=== PATIENT | female | born 1990 ===

== ENCOUNTER 2020-04-01 17:12 | Emergency (ER) | payer OTHER, SELFPAY ==
[2020-04-01 17:15] VITALS: BP 111/68; PULSE 88; RESP 18; TEMP 37.1; O2SAT 96; BMI 21.9
--- NOTE | 2020-04-01 17:42 | ED.URI ---
HPI - URI/Sore Throat General Chief Complaint: Dyspnea Stated Complaint: covid Time Seen by Provider: 04/01/20 18:00 Source: patient Mode of arrival: ambulatory Limitations: no limitations History of Present Illness HPI Narrative: 29-year-old female with no significant past medical history recently COVID-19 positive on 03/14/2020 presents from primary care's office with elevated D-dimer, shortness of breath and chest pain. She does have a family history of blood clots and does take oral contraceptives. MD elicited complaint: fever, cough and nasal congestion Pertinent past history: other (COVID-19 positive) Onset (ago): day(s) Consistency: constant Severity: moderate Pain scale (0-10): 7 Description of mucous: clear and watery Able to tolerate fluids by mouth: Yes Exacerbating factors: exertion and deep breaths Relieving factors: nothing Associated symptoms: fever, chills, cough, chest pain and shortness of breath Related Data Allergies Allergy/AdvReac Type Severity Reaction Status Date / Time latex [LATEX] Allergy Unknown UNKNOWN Unverified 11/22/19 16:06 Penicillins [PENICILLINS] Allergy Unknown UNKNOWN Unverified 11/22/19 16:06 Sulfa (Sulfonamide Allergy Unknown UNKNOWN Unverified 11/22/19 16:06 Antibiotics) [SULFA (SULFONAMIDE ANTIBIOTICS)] Review of Systems Review of Systems: Constitutional: No Fever, no Chills, positive fatigue, positive Malaise ENT/Mouth: No sore throat, positive runny nose Eyes: No Discharge Cardiovascular: Positive Chest Pain, positive SOB Respiratory: Positive Cough, No Sputum, No Wheezing, No Smoke Exposure, No Dyspnea Gastrointestinal: Positive Nausea, No Vomiting, No Diarrhea Genitourinary: no irregular bleeding, No Dysuria, No Urinary Frequency, No Hematuria, No Urinary Incontinence, No Urgency, No Flank Pain, Musculoskeletal: positive Myalgia Skin: No rash Neuro: No Headache Yes all other systems are reviewed and are negative PMFSH Past Medical History Attestation statement: The following information was validated with the patient. Source: old records reviewed Medical History (Updated 04/01/20 @ 20:59 by Raquel Acosta NP) Slipped disc in neck Social History Social History Smoking Status: Former smoker Use of substances other than those prescribed or required for medical reasons: No Advance Directives: No Advance Directives Information Provided: No Physical Exam Vital Signs: Vital Signs: Last Vital Signs Temp 98.9 F 04/01/20 20:00 Pulse 59 04/01/20 20:00 Resp 16 04/01/20 20:00 BP 98/59 L 04/01/20 20:00 Pulse Ox 99 04/01/20 20:00 Body Mass Index 21.9 Appearance: Alert. Oriented X3. No acute distress. Eyes: Pupils equal, round and reactive to light. ENT: Pharynx normal. Neck: Normal inspection. Neck supple. CVS: Normal heart rate and rhythm. Pulses normal. Respiratory: No respiratory distress. Breath sounds normal. Abdomen: Soft and nontender. Skin: Skin warm and dry. Normal skin color. Normal skin turgor. Extremities: No lower extremity edema. Neuro: No motor deficit. No sensory deficit. Course Course Course Narrative: 29-year-old female COVID positive on 03/14/2020 presents with shortness of breath palpitations and positive D-dimer. Plan of care is to rule out PE with CT angio. CT angio negative for PE. Patient does take oral contraceptive is recommended that she stop using that medication as it leads to hypercoagulability. Detailed description of COVID 19 symptoms and sudden symptoms DVT or blood clot, patient verbally understood signs and symptoms, will continue to follow-up with primary care physician as needed and agrees to plan of care discharge home. MDM - URI/Sore Throat MDM Narrative Medical decision making narrative: PE, pneumonia, COVID-19 Differential Diagnosis Differential diagnosis: Likely upper respiratory infection and viral infection Medical Records Attestation: I reviewed the patient's medical records. Lab Data Attestation: I reviewed the patient's lab results. Result diagrams: 04/01/20 18:14 04/01/20 18:14 Labs: Lab Results 04/01/20 04/01/20 04/01/20 Range/Units 18:14 18:14 18:14 WBC 4.9 (4.8-10.8) X10*3/uL RBC 4.38 (4.20-5.50) X10*6/uL Hgb 13.0 (12.0-16.0) g/dl Hct 39.0 (37-47) % MCV 89.0 (80-98) fL MCH 29.7 (27.0-33.0) pg MCHC 33.3 (31.0-35.0) g/dl RDW 12.8 (11.0-16.0) % Plt Count 226 (160-400) X10*3/uL MPV 10.1 (9.4-12.3) fL Immature Gran % (Auto) 0.2 (0.0-0.4) % Neut % (Auto) 39.0 L (45-73) % Lymph % (Auto) 47.7 H (20-40) % [place] % (Auto) 8.4 (2-11) % Eos % (Auto) 4.3 H (0-4) % Baso % (Auto) 0.4 (0-2) % Lymph # (Auto) 2.3 (1.2-4.9) X10*3/uL [place] # (Auto) 0.4 (0.1-1.2) X10*3/uL Eos # (Auto) 0.2 (0.0-0.4) X10*3/uL Baso # (Auto) 0.0 (0.0-0.2) X10*3/uL Abs Immat Gran (auto) 0.01 (0.00-0.03) X10*3/uL Absolute Neuts (auto) 1.9 L (2.0-8.3) X10*3/uL Absolute Nucleated RBC 0.000 (0.0-0.012) X10*3/uL Nucleated RBC % (auto) 0.0 (0.0-0.2) /100WBC Sodium 141 (135-145) mmol/L Potassium 4.2 (3.3-5.1) mmol/l Chloride 107 (96-108) mmol/L Carbon Dioxide 27 (22-29) mmol/L Anion Gap 11 L (12-20) BUN 9 (9-16) mg/dL Creatinine 0.67 (0.5-1.4) mg/dL Estim Creat Clear Calc 97.9 Estimated GFR > 60 Random Glucose 97 (60-115) mg/dL Calcium 8.8 (8.4-10.2) mg/dL Magnesium 2.4 (1.6-2.6) mg/dL Ferritin 17 (10-122) ng/mL Total Bilirubin 0.9 (0.0-1.0) mg/dL Direct Bilirubin 0.2 (0.0-0.5) mg/dL AST 20 (5-31) U/L ALT 24 (0-31) U/L Alkaline Phosphatase 44 (39-117) U/L Lactate Dehydrogenase 112 L (122-220) U/L C-Reactive Protein 0.14 (< or = 0.50) mg/dL Total Protein 7.4 (6.5-8.0) g/dL Albumin 4.2 (3.5-5.0) g/dL Lipase 38 (8-78) U/L Procalcitonin ng/mL Urine Color Urine Appearance Urine pH (5.0-8.0) Ur Specific [place] (1.005-1.025) Urine Protein (NEG-TRACE) MG/DL Urine Glucose (UA) (NEG) MG/DL Urine Ketones (NEG) MG/DL Urine Blood (NEG) Urine Nitrite (NEG) Ur Leukocyte Esterase (NEG) Urine Test (NEGATIVE) 04/01/20 04/01/20 04/01/20 Range/Units 18:14 18:34 18:34 WBC (4.8-10.8) X10*3/uL RBC (4.20-5.50) X10*6/uL Hgb (12.0-16.0) g/dl Hct (37-47) % MCV (80-98) fL MCH (27.0-33.0) pg MCHC (31.0-35.0) g/dl RDW (11.0-16.0) % Plt Count (160-400) X10*3/uL MPV (9.4-12.3) fL Immature Gran % (Auto) (0.0-0.4) % Neut % (Auto) (45-73) % Lymph % (Auto) (20-40) % [place] % (Auto) (2-11) % Eos % (Auto) (0-4) % Baso % (Auto) (0-2) % Lymph # (Auto) (1.2-4.9) X10*3/uL [place] # (Auto) (0.1-1.2) X10*3/uL Eos # (Auto) (0.0-0.4) X10*3/uL Baso # (Auto) (0.0-0.2) X10*3/uL Abs Immat Gran (auto) (0.00-0.03) X10*3/uL Absolute Neuts (auto) (2.0-8.3) X10*3/uL Absolute Nucleated RBC (0.0-0.012) X10*3/uL Nucleated RBC % (auto) (0.0-0.2) /100WBC Sodium (135-145) mmol/L Potassium (3.3-5.1) mmol/l Chloride (96-108) mmol/L Carbon Dioxide (22-29) mmol/L Anion Gap (12-20) BUN (9-16) mg/dL Creatinine (0.5-1.4) mg/dL Estim Creat Clear Calc Estimated GFR Random Glucose (60-115) mg/dL Calcium (8.4-10.2) mg/dL Magnesium (1.6-2.6) mg/dL Ferritin (10-122) ng/mL Total Bilirubin (0.0-1.0) mg/dL Direct Bilirubin (0.0-0.5) mg/dL AST (5-31) U/L ALT (0-31) U/L Alkaline Phosphatase (39-117) U/L Lactate Dehydrogenase (122-220) U/L C-Reactive Protein (< or = 0.50) mg/dL Total Protein (6.5-8.0) g/dL Albumin (3.5-5.0) g/dL Lipase (8-78) U/L Procalcitonin < 0.02 ng/mL Urine Color YELLOW Urine Appearance CLEAR Urine pH 6.5 (5.0-8.0) Ur Specific [place] 1.015 (1.005-1.025) Urine Protein NEG (NEG-TRACE) MG/DL Urine Glucose (UA) NEG (NEG) MG/DL Urine Ketones NEG (NEG) MG/DL Urine Blood NEG (NEG) Urine Nitrite NEG (NEG) Ur Leukocyte Esterase NEG (NEG) Urine Test NEGATIVE (NEGATIVE) Imaging Data CT PE protocol: Attestation: I personally reviewed and interpreted this imaging study as follows: Radiologist's impression: EXAMINATION: CT PULMONARY EMBOLISM STUDY CLINICAL INFORMATION: Elevated d-dimer. COMPARISON: Abdominal and pelvic CT from November 18, 2018. TECHNIQUE: Contiguous helical images of the chest were obtained following the administration of IV contrast. Multiplanar reconstructions were performed. MIPS were obtained and reviewed. DLP: 207 mGy-cm. CONTRAST: 54 cc of Omnipaque 350 were administered without incident. FINDINGS: The heart is of normal size. There is no pericardial effusion. The great vessels are unremarkable. Specifically, there is no pulmonary arterial filling defect. There is no CT evidence for pulmonary embolism. There are no chest wall masses. Review of lung windows demonstrates that there are neither pleural effusions nor pneumothoraces. There are no consolidations. There are no pulmonary parenchymal nodules. Limited evaluation of the upper abdomen demonstrates that the liver is of normal size and attenuation. There is a stable low-attenuation lesion within the periphery of the right lobe of the liver. Normal adrenal glands are identified. CT/CT angio chest PE protocol IMPRESSION: No CT evidence for pulmonary embolism. Automated exposure control (Care Dose) Adjustment of the mA and/or kv according to patient size (this includes techniques or standardized protocols for targeted exams where dose is matched to indication / reason for exam; i.e. extremities or head). Discharge Plan Discharge Clinical Impression: COVID-19 Patient Disposition: Home, Self-Care Instructions: COVID-19 (Coronavirus Disease 2019) (ED) Additional Instructions: You were referred to the emergency department for evaluation for an elevated D-dimer and shortness of breath. CT angiogram for pulmonary embolism scan is negative for blood clots in the lungs or any other acute findings. You may consider taking an aspirin 81 mg p.o. daily and considering other methods of control use. Use of control pills can increase risk for blood clots. Please follow-up with primary care physician in the next week. If you have any other symptoms that are concerning such as but not limited to chest pain, palpitations, increased shortness of breath please return to the emergency department immediately. Thank you for choosing this emergency department for evaluation. Please follow-up with primary care physician as needed. Return to the emergency department for any new, concerning, or worsening symptoms. Stand Alone Forms: Work/School Release Interventions: ED Discharge Assessment Last Done: 04/01/20 21:33 Discharge Date/Time: 04/01/20 21:34
--- NOTE | 2020-04-01 17:50 | ECG_ITS ---
Test Reason : DYSPENA Blood Pressure : / mmHG Vent. Rate : 075 BPM Atrial Rate : 075 BPM P-R Int : 116 ms QRS Dur : 096 ms QT Int : 412 ms P-R-T Axes : 034 086 050 degrees QTc Int : 460 ms Normal sinus rhythm Low voltage QRS Cannot rule out Anterior infarct , age undetermined Abnormal ECG When compared with ECG of 27-DEC-2005 18:57, Poor R wave progression compared to previous ECG Referred By: Raquel Acosta Electronically Signed By:Naveed Gandhi
[2020-04-01 18:00] VITALS: BP 104/57; RESP 17; TEMP 37.3; O2SAT 99
--- NOTE | 2020-04-01 18:02 | CT_ITS ---
EXAMINATION: CT PULMONARY EMBOLISM STUDY CLINICAL INFORMATION: Elevated d-dimer. COMPARISON: Abdominal and pelvic CT from November 18, 2018. TECHNIQUE: Contiguous helical images of the chest were obtained following the administration of IV contrast. Multiplanar reconstructions were performed. MIPS were obtained and reviewed. DLP: 207 mGy-cm. CONTRAST: 54 cc of Omnipaque 350 were administered without incident. FINDINGS: The heart is of normal size. There is no pericardial effusion. The great vessels are unremarkable. Specifically, there is no pulmonary arterial filling defect. There is no CT evidence for pulmonary embolism. There are no chest wall masses. Review of lung windows demonstrates that there are neither pleural effusions nor pneumothoraces. There are no consolidations. There are no pulmonary parenchymal nodules. Limited evaluation of the upper abdomen demonstrates that the liver is of normal size and attenuation. There is a stable low-attenuation lesion within the periphery of the right lobe of the liver. Normal adrenal glands are identified. CT/CT angio chest PE protocol IMPRESSION: No CT evidence for pulmonary embolism. Automated exposure control (Care Dose) Adjustment of the mA and/or kv according to patient size (this includes techniques or standardized protocols for targeted exams where dose is matched to indication / reason for exam; i.e. extremities or head).
[2020-04-01 18:24] LABS: MANUAL DIFF FLAG NO
[2020-04-01 18:25] LABS: Basophils Percent Auto 0.4 % (0-2); Eosinophils Absolute Auto 0.2 X10*3/uL (0.0-0.4); Eosinophils Percent Auto 4.3 % (0-4); Imm Gran Abs Auto 0.01 X10*3/uL (0.00-0.03); Imm Gran Pct Auto 0.2 % (0.0-0.4); Lymphocytes Absolute Auto 2.3 X10*3/uL (1.2-4.9); Lymphocytes Percent Auto 47.7 % (20-40); Mean Corpuscular HGB Conc 33.3 g/dl (31.0-35.0); Mean Corpuscular Hemoglobin 29.7 pg (27.0-33.0); Mean Platelet Volume 10.1 fL (9.4-12.3); Monocytes Absolute Auto 0.4 X10*3/uL (0.1-1.2); Monocytes Percent Auto 8.4 % (2-11); Neutrophils Absolute Auto 1.9 X10*3/uL (2.0-8.3); Platelet Count 226 X10*3/uL (160-400); Red Blood Count 4.38 X10*6/uL (4.20-5.50); Red Cell Distribution Width 12.8 % (11.0-16.0); White Blood Count 4.9 X10*3/uL (4.8-10.8)
[2020-04-01 18:50] LABS: Lactate Dehydrogenase 112 U/L (122-220)
[2020-04-01 18:54] LABS: Glucose Urine UA NEG (NEG); Leukocyte Esterase Urine NEG (NEG); Nitrite Urine NEG (NEG); PH 6.5 (5.0-8.0); Specific Gravity - Urine 1.015 (1.005-1.025); Urine Blood NEG (NEG); Urine Ketones NEG (NEG); Urine Protein NEG (NEG-TRACE)
[2020-04-01 18:55] LABS: Appearance Urine CLEAR; Color Urine YELLOW
[2020-04-01 18:57] LABS: Alanine Aminotransferase 24 U/L (0-31); Albumin Level 4.2 g/dL (3.5-5.0); Alkaline Phosphatase 44 U/L (39-117); Anion Gap 11 (12-20); Aspartate Amino Transferase 20 U/L (5-31); Bilirubin Direct 0.2 mg/dL (0.0-0.5); Bilirubin Total 0.9 mg/dL (0.0-1.0); Blood Urea Nitrogen 9 mg/dL (9-16); C Reactive Protein 0.14 mg/dL (< or = 0.50); Calcium 8.8 mg/dL (8.4-10.2); Carbon Dioxide 27 mmol/L (22-29); Chloride 107 mmol/L (96-108); Creatinine Clr Calc Pharmacy 97.9; Estimated Glomerular Filt Rate > 60; Glucose Random 97 mg/dL (60-115); Lipase 38 U/L (8-78); Magnesium 2.4 mg/dL (1.6-2.6); Potassium 4.2 mmol/l (3.3-5.1); Sodium 141 mmol/L (135-145); Total Protein 7.4 g/dL (6.5-8.0)
[2020-04-01 19:05] LABS: UPreg QC Valid YES; Urine Pregnancy NEGATIVE (NEGATIVE)
[2020-04-01 19:12] LABS: Ferritin 17 ng/mL (10-122); Procalcitonin < 0.02 ng/mL
[2020-04-01] MEDS: iohexoL 350 MG/ML 100 ML INFUS..BTL IV (19:35)
--- NOTE | 2020-04-01 19:42 | PC.NURSE ---
pt to cat scan via stretcher, placed back on zoll, pt offering no new complaints at thsi time
[2020-04-01 20:00] VITALS: BP 98/59; PULSE 59; RESP 16; TEMP 37.2; O2SAT 99
== END 2020-04-01 21:34 | disposition home or self-care (01) ==
PROVIDERS: Nurse Practitioner Family; Emergency Provider Emergency Medicine Emergency Medical Services; PCP Internal Medicine
DX: U07.1 COVID-19 (principal); R07.9 Chest pain, unspecified; Z83.2 Family history of diseases of the blood and blood-forming organs and certain disorders involving the immune mechanism
CPT/HCPCS: 36415; 71275; 80048; 80076; 81003; 81025; 82728; 83615; 83690; 83735; 84145; 85025; 86140; 93005; 96361; 96374; 99284; Q9967

== ENCOUNTER 2020-11-05 16:05 | Outpatient (REF) | payer OTHER, SELFPAY ==
[2020-11-07 14:25] LABS: Prolactin 8.7 ng/mL
== END 2020-11-05 16:06 | disposition home or self-care (01) ==
LOC: HO.LAB 16:05
PROVIDERS: Visit Provider Psychiatry & Neurology Neurology
DX: G43.109 Migraine with aura, not intractable, without status migrainosus (principal)
CPT/HCPCS: 36415; 84146

== ENCOUNTER 2020-11-13 16:42 | Outpatient (REF) | payer OTHER, SELFPAY ==
--- NOTE | ~2020-11-13 | MR_ITS ---
MR BRAIN WITHOUT AND WITH CONTRAST CLINICAL INFORMATION: Migraine with aura. COMPARISON: None available. TECHNIQUE: Multiplanar, multisequence MRI of the brain was obtained before and after the intravenous administration of 5 mL Gadavist FINDINGS: There is no pathologic intracranial enhancement. No parenchymal signal abnormality. There is no hydrocephalus, extra-axial surface collection, or herniation. The major flow voids at the skull base are preserved. There is no acute infarct on diffusion-weighted imaging. There is no intracranial hemorrhage on the gradient recalled echo acquisition. The midline structures are normal. The cerebellar tonsils are normally positioned. The cerebellum and brainstem are normal. The craniocervical junction is normal. Osseous marrow signal intensity is homogenous. The visualized soft tissues are unremarkable. MR/MR head/brain wo/w con IMPRESSION: Unremarkable MRI of the brain.
== END 2020-11-13 16:43 | disposition home or self-care (01) ==
LOC: HO.MRI 16:42
PROVIDERS: PCP Internal Medicine; Visit Provider Psychiatry & Neurology Neurology
DX: G43.109 Migraine with aura, not intractable, without status migrainosus (principal)
CPT/HCPCS: 70553; A9585

== ENCOUNTER → 2021-06-03 13:32 | Outpatient (BNVA) | payer OTHER, SELFPAY | PROVIDERS: PCP Internal Medicine; Visit Provider Nurse Practitioner Family | DX: G43.109 Migraine with aura, not intractable, without status migrainosus (principal); G47.9 Sleep disorder, unspecified; F32.A Depression, unspecified | CPT/HCPCS: 99202 ==

== ENCOUNTER 2021-12-22 23:13 | Emergency (ER) | payer OTHER, SELFPAY ==
--- NOTE | ~2021-12-22 | XR_ITS ---
EXAMINATION: XR KNEE, RIGHT CLINICAL INFORMATION: Right knee pain COMPARISON: Right knee radiographs 09/27/2016 TECHNIQUE: Four views of the right knee. FINDINGS: Bones and soft tissues are unremarkable. A barely perceptible joint effusion is present. No fracture. Alignment is anatomic. Joint spaces are well maintained. No abnormal soft tissue calcification. XR/XR knee RT 2V IMPRESSION: A barely perceptible joint effusion is present. No other abnormality is seen. Similar findings were present in 2017.
[2021-12-22 23:47] VITALS: BP 100/50; PULSE 80; RESP 18; TEMP 36.4; O2SAT 97; BMI 22.1
--- NOTE | 2021-12-23 00:46 | ED.LOWEXIN ---
HPI - Extremity Injury (Lower) General Chief Complaint: Extremity Injury, Lower Stated Complaint: R Knee pain Time Seen by Provider: 12/23/21 00:46 Source: patient Mode of arrival: ambulatory Limitations: no limitations History of Present Illness HPI Narrative: 31-year-old female who presents with right knee pain since yesterday. Patient tells me she was walking yesterday when she felt the knee locked up and then fell popping sensation in the knee. Since then continued pain. Patient is icing and taking naproxen at home with continued pain. She reports history of subluxation of same knee in the past seen by Orthopedics Related Data Home Medications Medication Instructions Recorded Confirmed aspirin 81 mg tablet,delayed 81 mg PO DAILY 06/03/21 06/03/21 release (Adult Aspirin Regimen) atorvastatin 20 mg tablet 20 mg PO DAILY 06/03/21 06/03/21 azelastine 137 mcg (0.1 %) nasal 2 spray intranasal BID 06/03/21 06/03/21 spray aerosol clonazepam 0.5 mg tablet 0.5 mg PO DAILY PRN 06/03/21 06/03/21 loratadine 10 mg tablet (Claritin) 10 mg PO DAILY 06/03/21 06/03/21 naproxen 500 mg tablet 500 mg PO Q12H PRN 06/03/21 06/03/21 sumatriptan succinate 50 mg tablet 50 mg PO 06/03/21 06/03/21 Previous Rx's Medication Instructions Recorded magnesium oxide 400 mg (241.3 mg 400 mg PO DAILY 30 days #30 tabs 06/03/21 magnesium) tablet riboflavin (vitamin B2) 400 mg 400 mg PO DAILY 30 days #30 tabs 06/03/21 tablet sumatriptan succinate 100 mg tablet 100 mg PO Q2H PRN migraine 06/03/21 headache 30 days #12 tabs Allergies Allergy/AdvReac Type Severity Reaction Status Date / Time latex [LATEX] Allergy Unknown UNKNOWN Unverified 06/03/21 13:38 Penicillins [PENICILLINS] Allergy Unknown UNKNOWN Unverified 06/03/21 13:38 Sulfa (Sulfonamide Allergy Unknown UNKNOWN Unverified 06/03/21 13:38 Antibiotics) [SULFA (SULFONAMIDE ANTIBIOTICS)] mushroom Allergy Anaphylaxis Verified 12/22/21 23:46 Review of Systems Review of Systems: Yes all other systems are reviewed and are negative Constitutional: Constitutional: Reports no additional constitutional complaints, Denies fever(s) and Denies weakness Eyes: Eyes: Reports no additional eye complaints ENT: Reports system reviewed and no additional complaints, except as documented Cardiovascular: Cardiovascular: Reports no additional cardiovascular complaints, Denies acrocyanosis and Denies leg edema Respiratory: Respiratory: Reports no additional respiratory complaints Gastrointestinal: Gastrointestinal: Reports no additional gastrointestinal complaints, Denies nausea and Denies vomiting Genitourinary: Genitourinary: Reports no additional female genitourinary complaints Musculoskeletal: Musculoskeletal: Reports no additional musculoskeletal complaints, Reports arthralgias, Denies joint swelling, Denies numbness and Denies tingling Integumentary/Breasts: Skin/Breast: Reports system reviewed and no additional complaints, except as docu and Denies rash Neurologic: Denies numbness, Denies tingling and Denies weakness PMFSH Past Medical History Attestation statement: The following information was validated with the patient. Source: old records reviewed and nursing notes reviewed Medical History Anemia Slipped disc in neck Surgical History History of colonoscopy History of LEEP (loop electrosurgical excision procedure) of cervix complicating History of wisdom tooth extraction Social History Social History Alcohol intake: never Patient Tobacco Use Status: Former Tobacco user Advance Directives: No Advance Directives Information Provided: Yes Physical Exam Vital Signs: Vital Signs: Last Vital Signs Temp 97.6 F 12/22/21 23:47 Pulse 80 12/22/21 23:47 Resp 18 12/22/21 23:47 BP 100/50 L 12/22/21 23:47 Pulse Ox 97 12/22/21 23:47 O2 Del Method 12/22/21 23:47 BMI result Body Mass Index 22.1 Const: General: cooperative, healthy appearing, comfortable and no acute distress Orientation/consciousness: patient oriented x3 Limitations: no limitations HEENT: Head: Yes normal to inspection Ears: hearing grossly normal bilaterally General nose exam: Normal external nose present Face and sinus: Yes normal facial exam Mouth: Normal oral and palatal mucosa present Throat: Yes posterior oropharynx normal Eyes: General: appearance normal, both eyes and all related structures Pupils: Equal, round and reactive pupils present Neck: Neck: Yes normal visual inspection Chest: Chest palpation & inspection: normal inspection of the chest Resp: Effort & Inspection: normal respiratory effort Cardio: Peripheral pulses: Peripheral pulses 2+ throughout Back/Spine/Pelvis: Thoracic/Lumbar Spine: thoracic and lumbar spine normal to inspection Skin: General skin exam: no rashes or lesions noted Neuro: General: patient oriented x3 and moves all extremities Cranial nerves: Yes Equal, round and reactive pupils present Cognition (Neuro): normal cognition Extrem: Other: There is tenderness to the medial joint line the medial ligament of the right knee. Unable to assess any ligamental laxity. Patient is able to flex and extend the knee with no difficulty. No posterior knee pain. No calf pain. Neurovascular intact distally General: Yes normal to inspection Course Course Course Narrative: X-rays show small joint effusion but no other bony abnormality. Likely sprain. Patient has a brace from home. Recommend crutches, rice. She can follow-up with her primary care doctor or Orthopedics for any persistent symptoms. Reviewed worrisome signs and symptoms of when to return to the emergency room. Comfortable plan for discharge home. MDM - Extremity Injury (Lower) MDM Narrative Medical decision making narrative: 31-year-old female here with right knee pain after walking and feeling a popping sensation yesterday. Will obtain x-rays Medical Records Attestation: I reviewed the patient's medical records. Lab Data Attestation: I reviewed the patient's lab results. Imaging Data knee x-ray: Attestation: I personally reviewed and interpreted this imaging study as follows: Radiologist's impression: [address] [address] XRay Report Signed Patient: Sophy Ash MR#: [id number] : 1990 Acct:[id number] Age/Sex: 31 / F ADM Date: 12/22/21 Loc: .ED Attending Dr: Ordering Physician: Generic ED Physician Date of Service: 12/22/21 Procedure(s): XR knee RT 2V Accession Number(s): [id number] cc: Generic ED Physician~ EXAMINATION: XR KNEE, RIGHT? CLINICAL INFORMATION: Right knee pain? COMPARISON: Right knee radiographs 09/27/2016? TECHNIQUE: Four views of the right knee. FINDINGS: Bones and soft tissues are unremarkable. A barely perceptible joint effusion is present. No fracture. Alignment is anatomic. Joint spaces are well maintained. No abnormal soft tissue calcification.? XR/XR knee RT 2V IMPRESSION: A barely perceptible joint effusion is present. No other abnormality is seen. Similar findings were present in 2017. ? Discharge Plan Discharge Clinical Impression: Right knee sprain Patient Disposition: Home, Self-Care Instructions: Knee Sprain (ED) Additional Instructions: X-ray show no fracture Apply ice, elevate the leg Take Motrin or Tylenol for pain as needed Follow-up with your primary care doctor and/or orthopedics for any persistent symptoms Prescriptions: No Action azelastine 137 mcg (0.1 %) aerosol,spray 2 spray intranasal BID atorvastatin 20 mg tablet 20 mg PO DAILY clonazepam 0.5 mg tablet 0.5 mg PO DAILY PRN sumatriptan succinate 50 mg tablet 50 mg PO naproxen 500 mg tablet 500 mg PO Q12H PRN loratadine [Claritin] 10 mg tablet 10 mg PO DAILY aspirin [Adult Aspirin Regimen] 81 mg tablet,delayed release (DR/EC) 81 mg PO DAILY magnesium oxide 400 mg (241.3 mg magnesium) tablet 400 mg PO DAILY 30 Days Qty: 30 6RF riboflavin (vitamin B2) 400 mg tablet 400 mg PO DAILY 30 Days Qty: 30 6RF sumatriptan succinate 100 mg tablet 100 mg PO Q2H PRN (Reason: migraine headache) 30 Days Qty: 12 6RF Rx Instructions: 1/2-1 tab at onset of migraine, may repeat in 2 hours (may take with naproxen), max of 2 tabs per day or 4 times per week. [place]: [facility] [place] [facility] [Provider Group] - 2 weeks Physician,None [Primary Care Provider] -
== END 2021-12-23 01:54 | disposition home or self-care (01) ==
PROVIDERS: Emergency Provider Internal Medicine
DX: S83.91XA Sprain of unspecified site of right knee, initial encounter (principal); X50.9XXA Other and unspecified overexertion or strenuous movements or postures, initial encounter; Z79.899 Other long term (current) drug therapy; Y93.01 Activity, walking, marching and hiking; Y92.480 Sidewalk as the place of occurrence of the external cause; Y99.9 Unspecified external cause status
CPT/HCPCS: 73560; 99282; 99283

== ENCOUNTER 2022-01-18 08:21 | Outpatient (REF) | payer OTHER, SELFPAY ==
--- NOTE | ~2022-01-18 | XR_ITS ---
EXAMINATION: XR KNEE, RIGHT CLINICAL INFORMATION: Right knee pain. COMPARISON: 12/23/2021 TECHNIQUE: Single sunrise view. FINDINGS: No abnormality is detected. XR/XR knee RT 1V IMPRESSION: No abnormality seen on this sunrise view.
== END 2022-01-18 08:22 | disposition home or self-care (01) ==
LOC: HO.HOSX 08:21
PROVIDERS: Visit Provider Physician Assistant
DX: M25.561 Pain in right knee (principal); M25.562 Pain in left knee; S83.011A Lateral subluxation of right patella, initial encounter; X58.XXXA Exposure to other specified factors, initial encounter; Y93.9 Activity, unspecified; Y92.9 Unspecified place or not applicable; Y99.9 Unspecified external cause status
CPT/HCPCS: 73560; 99202; 99212

== ENCOUNTER → 2022-01-26 13:56 | Outpatient (BNVA) | payer OTHER, SELFPAY | PROVIDERS: PCP Internal Medicine; Visit Provider Nurse Practitioner Family | DX: G43.109 Migraine with aura, not intractable, without status migrainosus (principal); M24.80 Other specific joint derangements of unspecified joint, not elsewhere classified | CPT/HCPCS: 99212 ==

== ENCOUNTER → 2022-03-10 14:26 | Outpatient (BNVA) | payer OTHER, SELFPAY | PROVIDERS: PCP Internal Medicine; Visit Provider Physician Assistant | DX: S83.011A Lateral subluxation of right patella, initial encounter (principal); M24.80 Other specific joint derangements of unspecified joint, not elsewhere classified | CPT/HCPCS: 99212 ==

== ENCOUNTER 2022-03-19 13:00 | Outpatient (RCR) | payer OTHER, SELFPAY ==
--- NOTE | 2022-02-12 16:11 | MHC.PT.EP ---
[facility] [place] Office [place] Office [place] Office [address] Marita Loo [address] [phone] F: [phone] F: [phone] F: [phone] F: [phone] Physical Therapy Plan of Care Date of Evaluation: Date of Surgery: NA Diagnosis: Assessment: Pt IS 31 YO F REFERRED TO PT FROM ORTHO ([facility]) WITH LATERAL SUBLUXATION OF R PATELLA. Pt REPORTS SHE WAS JUST WALKING IN KITCHEN Dec AND FELT R KNEE GOT PULLED OUTWARD AND SNAPPED BACK (TOO MUCH). 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 WAS SEEN IN ER, FU WITH ORTHO. XRAY NEG, REPORTS MRI (THAT SHE HAD AT [facility] WAS NEG). PRESENTS WITH ANTALGIC GT WITH I CRUTCH ON R SIDE, LIMITED R KNEE ROM, LIMITED R LE STRENGTH WITH PAIN. SHOULD BENEFIT FROM PT TO ADDRESS THESE ISSUES Frequency and Duration: The patient will be seen 2X/WK X 6 WKS Short Term Goals: 1. INCREASED AWARENESS KNEE CARE 2. GT WITHOUT AD 3. R KNEE EXT TO 0 Intermediate Goals: 1. I HEP WITH DC EX PLAN 2. R KNEE FLEX =120 3. I TAPING 4. DECREASED R KNEE PAIN AT LEAST 50% WITH ADLS Treatment Plan: Modalities to reduce pain, spasms and effusion. Manual therapy to restore motion and function. Therapeutic exercise to improve strength and flexibility. Neuromuscular re-education for posture and balance. Therapeutic activities to return to functional activities of daily living. Electronically signed by: ELIZABETH PATRICIA PT Please sign and return to therapist. Thank you for your referral.
--- NOTE | 2022-05-04 16:06 | MHC.PT.DC ---
[facility] [place] [facility] [place] [facility] [place] [facility] [address] Marita Loo [address] [phone] F: [phone] F: [phone] F: [phone] F: [phone] Physical Therapy Discharge Report Diagnosis: Date of Surgery: NA Date of Evaluation: 02/12/22 Date of Discharge: 05/04/22 Treatments to Date: 7 Cancellations to Date: 2 No Shows to Date: Discharge Status: Improved Function Independent with HEP Patient Elected to Stop Discharge Summary: R KNEE AROM 0-120 (12-85 AT SOC). HAS MET MOST PT GOALS. AGREES WITH DC (WILL DO 2 WK FU AND CX IF NOT NEEDED) Electronically signed by: ELIZABETH PATRICIA PT Please sign and return to therapist. Thank you for your referral.
== END 2022-05-04 16:08 | disposition home or self-care (01) ==
LOC: HO.PT 13:00
PROVIDERS: PCP Internal Medicine; Visit Provider Physician Assistant
DX: S83.011D Lateral subluxation of right patella, subsequent encounter (principal)
CPT/HCPCS: 97110; 97116; 97140; 97162; 97535

== ENCOUNTER → 2022-05-25 11:35 | Outpatient (BNVA) | payer OTHER, SELFPAY | PROVIDERS: PCP Internal Medicine; Visit Provider Nurse Practitioner Family | DX: G43.109 Migraine with aura, not intractable, without status migrainosus (principal); M24.80 Other specific joint derangements of unspecified joint, not elsewhere classified | CPT/HCPCS: 99212 ==

== ENCOUNTER → 2022-08-05 13:54 | Outpatient (BNVA) | payer OTHER, SELFPAY | PROVIDERS: PCP Internal Medicine; Visit Provider Student in an Organized Health Care Education/Training Program | DX: S83.011A Lateral subluxation of right patella, initial encounter (principal); M24.80 Other specific joint derangements of unspecified joint, not elsewhere classified | CPT/HCPCS: 99202 ==

== ENCOUNTER 2022-09-27 12:56 | Outpatient (AMB) | payer OTHER, SELFPAY ==
[2022-09-27 12:57] VITALS: BP 104/78; PULSE 82; O2SAT 98; BMI 21.1
--- NOTE | 2022-09-27 12:57 | A.OFFVIS_ITS ---
Intake Vital Signs 09/27/22 12:57 Height 5 ft 2 in Weight 115 lb 2 oz BMI 21.1 BP 104/78 Blood Pressure Location Rt brachial Position Sitting Pulse 82 Pulse Source Pulse Oximeter Pulse Oximetry (%) 98 Oxygen Delivery Method Room Air Intake Visit Reasons: 4m follow up Intake Note: Pt presents as a 4 month f/u for headaches. Pt states she had a couple headaches but took the Rizatriptan and it took the edge off where should could lay down for a nap. Equipment Maintenance Supervisor Required: No Allergies latex [LATEX] Allergy (Unknown, Verified 09/27/22 13:05) UNKNOWN Penicillins [PENICILLINS] Allergy (Unknown, Verified 09/27/22 13:05) UNKNOWN Sulfa (Sulfonamide Antibiotics) [SULFA (SULFONAMIDE ANTIBIOTICS)] Allergy (Unknown, Verified 09/27/22 13:05) UNKNOWN mushroom Allergy (Verified 09/27/22 13:05) Anaphylaxis Medication List - Last Reconciled 09/27/22 by JODIE Heath aspirin (Adult Aspirin Regimen) 81 mg PO DAILY atorvastatin 20 mg PO DAILY clonazepam 0.5 mg PO DAILY PRN loratadine (Claritin) 10 mg PO DAILY magnesium oxide 400 mg PO DAILY naproxen 500 mg PO Q12H PRN riboflavin (vitamin B2) 400 mg PO DAILY 30 days rizatriptan 5 - 10 mg (0.5 - 1 x 10 mg) PO Q2H PRN 21 days HPI HPI Comments History of Present Illness Details 32-yr-old female presents for f/u visit. Pt denies any significant interval medical changes. Pt reports she has been wondering if she has undiagnosed ADD versus under treated mood disorder. Her PCP referred her to collaborative care, however review of pt's note shows that that service could not help her with this question. Pt reports her brother was diagnosed with ADHD as a young child. Her mother has recently has been diagnosed with depression and anxiety. She describes that she can be focused or even hyperfocused if she is very interested. She has been prone to procrastinating say doing a paper, and then hyperfocusing to finish the paper- typically did well on her papers. In highschool, if she was not interested in a topic, she would do the work in a classroom but not the homework. She is prone to forgetting to respond to emails/texts. She is prone to multi-tasking- tends to doodle. When she is driving, she always has the GPS and music running. She has had 2 migraines since the last visit, her triptan was helpful. Her genetic testing appt is still pending- Nov and next June. [facility] Medical History Anemia High cholesterol Slipped disc in neck Surgical History History of colonoscopy History of LEEP (loop electrosurgical excision procedure) of cervix complicating History of wisdom tooth extraction Family History Mother Migraines Maternal Grandmother Migraines Brother Migraines Family/Other Rheumatoid arthritis Social History (Updated 09/27/22 @ 13:09 by Tri Levy CMA) Alcohol intake: current Alcohol intake frequency: holidays/special occasions only Patient Tobacco Use Status: Former Tobacco user Substance Use Type: Marijuana Current occupational status: unemployed Review of Systems Const All systems reviewed & are unremarkable except as noted in HPI and below Physical Exam Vital Signs: Last Vital Signs Pulse 82 09/27/22 12:57 BP 104/78 09/27/22 12:57 Pulse Ox 98 09/27/22 12:57 Oxygen Delivery Method Room Air 09/27/22 12:57 BMI result Body Mass Index 21.1 Const General: cooperative and no acute distress Orientation/consciousness: patient oriented x3 HEENT Head: Yes normocephalic Resp Effort & Inspection: normal respiratory effort and able to speak in complete sentences Neuro General: patient oriented x3 and CN's II-XI intact bilaterally Cognition (Neuro): normal cognition Gait exam (Neuro): Assistive device used (cane) Motor exam (neuro): 5/5 motor strength present throughout Psych Appearance: grossly normal Mental Status: mental status grossly normal Speech and movement: Normal speech and movement present Affect: normal affect Attitude: cooperative Thought process: Normal thought process present Thought content: Normal thought content present Insight: Good insight present (Psych) Judgement: Good judgement present (Psych) Assessment & Plan Assessment & Plan (1) Migraine with aura: Code(s): G43.109 - Migraine with aura, not intractable, without status migrainosus (2) ADD (attention deficit disorder): Code(s): F98.8 - Other specified behavioral and emotional disorders with onset usually occurring in childhood and adolescence Plan For pt's ? on ADD dx: Based on pt's reported s/s, which developed during her early life and persist through today, I immanuel pt does have a degree of ADD. I have advised pt to try psychotherapy, if ineffective, we can consider psychostimulant. Info given on [facility], if pt unable toe stablish care we can assist. Pt previously tried Buproprion for mood which did not seem to help focus etc. For joint hypermobility: Concur w/ referral to genetics. For migraine prevention: Again trial Amitriptyline 10mg qhs- may help body pains as well. Continue riboflavin for migraine prevention.? Pt may trial Mag citrate, co-q 10, feverfew. For acute migraine tx: Continuel Rizatripatn 5-10mg prn, may repeat in 2 hours if migraine not fully aborted.? May augment with an NSAID such as naproxen.? Medications: New magnesium oxide 400 mg PO DAILY 30 tabs 6RF 30 days Refilled riboflavin (vitamin B2) 400 mg PO DAILY 30 tabs 6RF 30 days Coding Level of Care Code Est Pt Level 4 (33785) Diagnoses Migraine with aura G43.109 ADD (attention deficit disorder) F98.8
== END 2022-09-27 14:12 | disposition home or self-care (01) ==
PROVIDERS: Visit Provider Nurse Practitioner Family
DX: G43.109 Migraine with aura, not intractable, without status migrainosus (principal); F98.8 Other specified behavioral and emotional disorders with onset usually occurring in childhood and adolescence
CPT/HCPCS: 99214

== ENCOUNTER → 2022-09-27 12:56 | Outpatient (BNVA) | payer OTHER, SELFPAY | PROVIDERS: Visit Provider Nurse Practitioner Family | DX: G43.109 Migraine with aura, not intractable, without status migrainosus (principal); F98.8 Other specified behavioral and emotional disorders with onset usually occurring in childhood and adolescence | CPT/HCPCS: 99212 ==

== ENCOUNTER 2023-03-30 12:56 | Outpatient (AMB) | payer BC, SELFPAY ==
--- NOTE | 2023-03-30 13:01 | A.OFFVIS_ITS ---
Intake Vital Signs 03/30/23 13:03 Height 5 ft 2 in Weight 118 lb 6 oz BMI 21.6 BP 98/58 L Blood Pressure Location Rt brachial Position Sitting Respiration 17 Pulse 85 Pulse Source Pulse Oximeter Pulse Oximetry (%) 97 Oxygen Delivery Method Room Air Intake Visit Reasons: 6m follow up - LVM Intake Note: Pt presents to the office for a 6 month follow up for migraine with aura. Senior Sales Director Required: No Allergies latex [LATEX] Allergy (Unknown, Verified 03/30/23 13:02) UNKNOWN Penicillins [PENICILLINS] Allergy (Unknown, Verified 03/30/23 13:02) UNKNOWN Sulfa (Sulfonamide Antibiotics) [SULFA (SULFONAMIDE ANTIBIOTICS)] Allergy (Unknown, Verified 03/30/23 13:02) UNKNOWN mushroom Allergy (Verified 03/30/23 13:02) Anaphylaxis HPI HPI Comments History of Present Illness Details 32-yr-old female presents for f/u visit. Pt denies any significant interval medical changes. Her psych meds have been adjusted- has started Pristiq, and is slowly increasing dose. She states that her psychiatrist did feel she has a mild case of ADHD- holding on starting specific ADHD tx. Her migraines are stable, occurs once every few weeks. She has noticed some increased photophobia. Not sure if it is due to more screen use- does wear blue light filtering glasses, uses darker/warmer screen settings. Rizatriptan does help to shorten duration and intensity. She feels the Rizatriptan helps better than the Sumatriptan. May occasionally need to leave work and go home and rest. She stopped Mag- d/t loose stools. She did have her genetics consult- she did not have the blood test as insurance did cover it. However, she was given a diagnosis of EDS syndrome. Baseline migraine with aura characteristics: About 20 minutes beofre headache, she has bilateral vision changes- lights and vision loss. Severe sharp pain/pressure/thumbing left retroorbital and occipital pain a/w photophobia, osmophobia at times, phonophobia, nausea, vomiting at times. W/o autonomic s/s, focal weakness, paresthesias. Baseline headache characteristics: Stress headache: throbbing/pressure right sided headache not associated with any other symptoms. Sinus headaches: pressure pain are mid-frontal and bilateral retroorbital/occipital region. Not associated with any other symptoms. COUNTS INCLUDE 234 BEDS AT THE [facility] Medical History Anemia High cholesterol Slipped disc in neck Surgical History History of LEEP (loop electrosurgical excision procedure) of cervix complicating History of colonoscopy History of wisdom tooth extraction Family History Mother Migraines Maternal Grandmother Migraines Brother Migraines Family/Other Rheumatoid arthritis Social History Alcohol intake: current Alcohol intake frequency: holidays/special occasions only Patient Tobacco Use Status: Former Tobacco user Substance Use Type: Marijuana Current occupational status: unemployed Physical Exam Vital Signs: Last Vital Signs Pulse 85 03/30/23 13:03 Resp 17 03/30/23 13:03 BP 98/58 L 03/30/23 13:03 Pulse Ox 97 03/30/23 13:03 Oxygen Delivery Method Room Air 03/30/23 13:03 BMI result Body Mass Index 21.6 Const General: cooperative and no acute distress Orientation/consciousness: patient oriented x3 Resp Effort & Inspection: normal respiratory effort and able to speak in complete sentences Neuro Other: Right leg braced General: patient oriented x3 Cranial nerves: Yes CN's II-XII intact bilaterally Cognition (Neuro): normal cognition Psych Appearance: grossly normal Mental Status: mental status grossly normal Speech and movement: Normal speech and movement present Affect: normal affect Attitude: cooperative Assessment & Plan Assessment & Plan (1) Migraine with aura: Code(s): G43.109 - Migraine with aura, not intractable, without status migrainosus (2) EDS (Yevgeniy-Danlos syndrome): Comment: Diagnosis made by Genetics based on clinical phenotype, genetic testing has not yet been completed. Code(s): Q79.60 - Yevgeniy-Danlos syndrome, unspecified (3) ADD (attention deficit disorder): Code(s): F98.8 - Other specified behavioral and emotional disorders with onset usually occurring in childhood and adolescence Plan For ADD: Patient has reestablished care with her psychiatrist. Continue trial of Pristiq. Could consider trial of neuro stimulant in follow-up. Pt previously tried Buproprion for mood which did not seem to help focus etc. ? For joint hypermobility: Discuss Yevgeniy Danlos syndrome diagnosis. Patient does have a demographic analyst. Advised to check with her demographic analyst if she has had the echocardiogram in the past. ? For migraine prevention: Consider trying gross tinted blue light filtering glasses or even just great lens glasses. Hold Amitriptyline 10mg qhs- may help body pains as well. Continue riboflavin for migraine prevention.? Stop taking magnesium- cause loose stools. May trial co-q 10, feverfew. ? For acute migraine tx: Continue Rizatripatn 5-10mg prn, may repeat in 2 hours if migraine not fully aborted.? May augment with an NSAID such as naproxen.? Follow-up in 4 months or sooner as needed Coding Level of Care Code Est Pt Level 4 (36063) Diagnoses Migraine with aura G43.109 EDS (Yevgeniy-Danlos syndrome) Q79.60 ADD (attention deficit disorder) F98.8
[2023-03-30 13:03] VITALS: BP 98/58; PULSE 85; RESP 17; O2SAT 97; BMI 21.6
== END 2023-03-30 13:48 | disposition home or self-care (01) ==
PROVIDERS: PCP Internal Medicine; Visit Provider Nurse Practitioner Family
DX: G43.109 Migraine with aura, not intractable, without status migrainosus (principal); Q79.60 Ehlers-Danlos syndrome, unspecified; F98.8 Other specified behavioral and emotional disorders with onset usually occurring in childhood and adolescence
CPT/HCPCS: 99214

== ENCOUNTER → 2023-03-30 12:56 | Outpatient (BNVA) | payer BC, SELFPAY | PROVIDERS: PCP Internal Medicine; Visit Provider Nurse Practitioner Family ==

== ENCOUNTER 2023-07-27 12:44 | Outpatient (AMB) | payer BC, SELFPAY ==
--- NOTE | 2023-07-27 12:56 | MHC.OFFVIS ---
Vital Signs 07/27/23 13:06 Height 5 ft 2 in Weight 122 lb 6 oz BMI 22.4 BP 112/62 Blood Pressure Location Rt brachial Position Sitting Pulse 78 Pulse Source Pulse Oximeter Pulse Oximetry (%) 98 Oxygen Delivery Method Room Air Intake Visit Reasons: 4 mo f/u-LVM Intake Note: Patient presents for 4 months f/u. Allergies latex [LATEX] Allergy (Unknown, Verified 07/27/23 13:01) UNKNOWN Penicillins [PENICILLINS] Allergy (Unknown, Verified 07/27/23 13:01) UNKNOWN Sulfa (Sulfonamide Antibiotics) [SULFA (SULFONAMIDE ANTIBIOTICS)] Allergy (Unknown, Verified 07/27/23 13:01) UNKNOWN mushroom Allergy (Verified 07/27/23 13:01) Anaphylaxis Medication List - Last Reconciled 07/27/23 by JODIE Heath aspirin (Adult Aspirin Regimen) 81 mg PO DAILY atorvastatin 20 mg PO DAILY cholecalciferol (vitamin D3) 25 mcg PO DAILY 30 days clonazepam 0.5 mg PO DAILY PRN cromolyn 200 mg PO QID loratadine (Claritin) 10 mg PO DAILY naproxen 500 mg PO Q12H PRN norethindrone (contraceptive) 0.35 mg PO DAILY rizatriptan 5 - 10 mg (0.5 - 1 x 10 mg) PO Q2H PRN 21 days sodium chloride 1 mg PO DAILY HPI Comments Details: 33-yr-old female presents for f/u visit. Pt denies any significant interval medical changes. Pt has recently saw neurosuregeon, Dr Erwin [facility]- was told probably no intervention possible for her neck s/s, however they would repeat imaging. She saw Dr Szymanski at [facility]- has had food allergy testing- was positive for mushrooms, which she was aware of. She is scheduled for environmental allergy tetsing in August. 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 She saw genetics at [facility]. They are working to have genetic testing for HLD/EDS approved by insurance. She does note she has been having prolonged menstrual cycle since switching to a progresterone control. Has also been feeling more silva, easily irritable. Migraines are about the same. Having 2-3 migraine days per month. Sometimes triggered by not eating. Uses Rizatriptan at the first sign, w/ food and fluid intake. But headache can still last 2 days. Baseline headache characteristics: Baseline migraine with aura characteristics: About 20 minutes beofre headache, she has bilateral vision changes- lights and vision loss. Severe sharp pain/pressure/thumbing left retroorbital and occipital pain a/w photophobia, osmophobia at times, phonophobia, nausea, vomiting at times. W/o autonomic s/s, focal weakness, paresthesias. Baseline headache characteristics: Stress headache: throbbing/pressure right sided headache not associated with any other symptoms. Sinus headaches: pressure pain are mid-frontal and bilateral retroorbital/occipital region. Not associated with any other symptoms. [facility] Medical History Anemia High cholesterol Slipped disc in neck Surgical History History of LEEP (loop electrosurgical excision procedure) of cervix complicating History of colonoscopy History of wisdom tooth extraction Family History Mother Migraines Maternal Grandmother Migraines Brother Migraines Family/Other Rheumatoid arthritis Social History Alcohol intake: current Alcohol intake frequency: holidays/special occasions only Patient Tobacco Use Status: Former Tobacco user Substance Use Type: Marijuana Current occupational status: unemployed Physical Exam Vital Signs: Last Vital Signs Pulse 78 07/27/23 13:06 BP 112/62 07/27/23 13:06 Pulse Ox 98 07/27/23 13:06 Oxygen Delivery Method Room Air 07/27/23 13:06 BMI result Body Mass Index 22.4 Const General: cooperative and no acute distress Orientation/consciousness: patient oriented x3 Resp Effort & Inspection: normal respiratory effort and able to speak in complete sentences Neuro Other: Right knee brace on- slow steady gait w/ cane. General: patient oriented x3 Cranial nerves: Yes CN's II-XII intact bilaterally Cognition (Neuro): normal cognition Psych Appearance: grossly normal Mental Status: mental status grossly normal Speech and movement: Normal speech and movement present Affect: normal affect Attitude: cooperative Assessment & Plan Assessment & Plan (1) Migraine with aura: Code(s): G43.109 - Migraine with aura, not intractable, without status migrainosus Category: Medical (2) Depression: Code(s): F32.A - Depression, unspecified Category: Medical (3) EDS (Yevgeniy-Danlos syndrome): Comment: Diagnosis made by Genetics based on clinical phenotype, genetic testing has not yet been completed. Code(s): Q79.60 - Yevgeniy-Danlos syndrome, unspecified Category: Medical (4) ADD (attention deficit disorder): Code(s): F98.8 - Other specified behavioral and emotional disorders with onset usually occurring in childhood and adolescence Category: Medical Plan For ADD: Patient has not had f/u w/ previous psychiatrist- they are just not a good fit. She stopped trial of Pristiq- was ineffective. Info shared on [facility]- if they cannot see pt- we will refer pt for a [facility] psych consult and manage from there. Could consider trial of neuro stimulant in follow-up. Pt previously tried Buproprion for mood which did not seem to help focus etc. ? For joint hypermobility: Discuss Yevgeniy Danlos syndrome diagnosis. Patient does have a park interpreter. Advised to check with her park interpreter if she has had the echocardiogram in the past. For allergies and ? Mast cell d/o- F/u w/ Dr Szymanski- imrpoving food tolerance, may help overall health. ? For migraine prevention: Hold Amitriptyline 10mg qhs.l. Continue riboflavin for migraine prevention.? Stop taking magnesium- cause loose stools. May trial co-q 10, feverfew. ? For acute migraine tx: Trial Ubrelvy 100mg prn, MR in 2 hrs, Max 200mg/day- as Rizatriptan not fully effective. Continue Rizatripatn 5-10mg prn, may repeat in 2 hours for now. Previous tx trials: Sumatriptan 50-100mg- not effective. ? Follow-up in 6 months or sooner as needed Medications: New ubrogepant (Ubrelvy) take at onset of migraine, may repeat in 2hrs (may take w/ Ibuprofen) 50 - 100 mg (0.5 - 1 x 100 mg) PO ONCE 30 days PRN 16 tabs 3RF migraine headache Coding Level of Care Code Est Pt Level 4 (57144) Diagnoses Migraine with aura G43.109 Depression F32.A EDS (Yevgeniy-Danlos syndrome) Q79.60 ADD (attention deficit disorder) F98.8
[2023-07-27 13:06] VITALS: BP 112/62; PULSE 78; O2SAT 98; BMI 22.4
== END 2023-07-27 14:00 | disposition home or self-care (01) ==
PROVIDERS: PCP Internal Medicine; Visit Provider Nurse Practitioner Family
DX: G43.109 Migraine with aura, not intractable, without status migrainosus (principal); F32.A Depression, unspecified; Q79.60 Ehlers-Danlos syndrome, unspecified; F98.8 Other specified behavioral and emotional disorders with onset usually occurring in childhood and adolescence
CPT/HCPCS: 99214

== ENCOUNTER → 2023-07-27 12:44 | Outpatient (BNVA) | payer BC, SELFPAY | PROVIDERS: PCP Internal Medicine; Visit Provider Nurse Practitioner Family ==

== ENCOUNTER 2023-08-08 22:14 | Inpatient (IN) | payer BC, SELFPAY ==
--- NOTE | ~2023-08-08 | CT_ITS ---
EXAMINATION: CT ABDOMEN AND PELVIS WITH CONTRAST CLINICAL INFORMATION: Right lower quadrant pain. COMPARISON: 11/18/2018 TECHNIQUE: Multidetector volumetric images were obtained from the superior aspect of the liver through the pubic symphysis following administration 85 mL of Omnipaque 350 intravenous contrast. Sagittal and coronal reformatted images were obtained on the technologist's workstation. Oral contrast: No This CT examination was performed using dose optimization techniques as appropriate, variously including the following: *Automated exposure control *Adjustment of mA and/or kV according to patient size (this includes techniques or standardized protocols for targeted exams where dose is matched to indication/reason for exam; i.e. extremities or head) *Use of iterative reconstruction technique DLP: 360 mGy-cm FINDINGS: LUNG BASES: No pulmonary consolidation or pleural effusion. HEPATOBILIARY: Liver has normal size and contour. 0.5 cm hypodense focus at the hepatic dome probably represents a hemangioma; it has a density of approximately 50 Hounsfield units. 1.7 cm hypodense focus in the inferior right hepatic lobe has features of a cavernous hemangioma, as noted on 11/18/2018. It was 1.5 cm on the prior CT exam. Also, a nearby hypodense 1 cm focus in the inferior right lobe of approximately 50 Hounsfield unit attenuation is compatible with a hemangioma. Gallbladder has a normal appearance. No dilated bile ducts. PANCREAS: No edema, pancreatic ductal dilatation or mass. SPLEEN: Normal. ADRENAL GLANDS: Normal. KIDNEYS AND URETERS: Kidneys are normal in size. No nephrolithiasis, hydronephrosis or perinephric edema. 1 cm simple cortical cyst of the posterior upper pole the right kidney. No renal imaging follow-up is recommended for simple cyst. BLADDER: Underdistended, grossly unremarkable. BOWEL AND PERITONEUM: No dilated bowel loops. There are a few appendicoliths, and the appendix is filled with fluid, distended up to 1.4 cm diameter. The appendix has a thickened wall. Trace periappendiceal fluid is present but there is no circumscribed, measurable periappendiceal collection. ABDOMINAL WALL: Unremarkable. VASCULATURE: Abdominal aorta is normal in caliber and its branches widely patent. LYMPH NODES: No pathologic sized lymph nodes in the abdomen or pelvis. No inguinal lymphadenopathy. PELVIC VISCERA: The uterus and adnexa have a normal appearance. The largest follicle within the right ovary is 1.4 cm. MUSCULOSKELETAL: Unremarkable. CT/CT abdomen pelvis w IV con IMPRESSION: * Acute appendicitis with presence of trace periappendiceal fluid. There is no visible disruption of the appendiceal wall. * Hemangiomas of the liver. The critical test result was discussed with Dr. Larkin at 7:26 AM on 08/09/2023 and it was ascertained that the content and the importance of the findings was understood at the time of the direct communication.
[2023-08-08 22:38] VITALS: BP 109/58; PULSE 73; RESP 20; TEMP 37.6; O2SAT 99; BMI 21.9
[2023-08-08 23:03] LABS: MANUAL DIFF FLAG NO
[2023-08-08 23:04] LABS: Basophils Absolute Auto 0.1 X10*3/uL (0.0-0.2); Basophils Percent Auto 0.3 % (0-2); Eosinophils Absolute Auto 0.1 X10*3/uL (0.0-0.4); Eosinophils Percent Auto 0.4 % (0-4); Hematocrit 42.7 % (37.0-47.0); Imm Gran Abs Auto 0.06 X10*3/uL (0.00-0.03); Imm Gran Pct Auto 0.4 % (0.0-0.4); Lymphocytes Absolute Auto 1.9 X10*3/uL (1.2-4.9); Lymphocytes Percent Auto 12.6 % (20-40); Mean Corpuscular HGB Conc 35.1 g/dl (31.0-35.0); Mean Corpuscular Hemoglobin 31.5 pg (27.0-33.0); Mean Corpuscular Volume 89.7 fL (80.0-98.0); Mean Platelet Volume 10.1 fL (9.4-12.3); Monocytes Absolute Auto 0.8 X10*3/uL (0.1-1.2); Monocytes Percent Auto 5.5 % (2-11); Neutrophils Percent Auto 80.8 % (45-73); Platelet Count 204 X10*3/uL (160-400); Red Blood Count 4.76 X10*6/uL (4.20-5.50); Red Cell Distribution Width 12.4 % (11.0-16.0); White Blood Count 14.9 X10*3/uL (4.8-10.8)
[2023-08-08 23:05] LABS: Appearance Urine Clear; Color Urine Yellow; Glucose Urine UA Negative (Negative); Leukocyte Esterase Urine Negative (Negative); Nitrite Urine Negative (Negative); PH 7.5 (5.0-9.0); Urine Blood Negative (Negative); Urine Ketones 80 mg/dL (Negative); Urine Protein Negative (Neg-Trace)
[2023-08-08 23:25] LABS: Alanine Aminotransferase 12 U/L (0-31); Albumin Level 4.7 g/dL (3.5-5.0); Alkaline Phosphatase 50 U/L (39-117); Anion Gap 14 (12-20); Aspartate Amino Transferase 15 U/L (5-31); Bilirubin Total 1.7 mg/dL (0.0-1.0); Blood Urea Nitrogen 13 mg/dL (9-16); Carbon Dioxide 24 mmol/L (22-29); Chloride 103 mmol/L (96-108); Creatinine Clr Calc Pharmacy 65.9; Estimated Glomerular Filt Rate > 60; Glucose Random 107 mg/dL (60-115); Lipase 16 U/L (8-78); Potassium 3.9 mmol/L (3.3-5.1); Sodium 137 mmol/L (135-145); Total Protein 8.3 g/dL (6.5-8.0)
[2023-08-08 23:31] LABS: HCG Quantitative < 2 mIU/mL
[2023-08-09] VITALS (14 sets, daily range): BP systolic 86–109; BP diastolic 43–61; PULSE 54–100; RESP 14–18; TEMP 36.2–37.6; O2SAT 97–100
--- NOTE | 2023-08-09 03:59 | ED_ITS ---
HPI - Abdominal Pain General Chief Complaint: Abdominal Pain Stated Complaint: rt side abd pain radiating to back Time Seen by Provider: 08/09/23 03:51 Source: patient and family Mode of arrival: ambulatory Limitations: no limitations History of Present Illness ED Provider: Dr. Nelly Larkin HPI narrative: Patient comes to the emergency room complaining of right lower quadrant pain for 5 days. Patient states that she has had intermittent diarrhea, today started having vomiting. Patient denies fever chills, no hematuria or dysuria. Related Data Home Medications ?Medication ?Instructions ?Recorded ?Confirmed aspirin 81 mg tablet,delayed 81 mg PO DAILY 06/03/21 07/27/23 release (Adult Aspirin Regimen) atorvastatin 20 mg tablet 20 mg PO DAILY 06/03/21 07/27/23 clonazepam 0.5 mg tablet 0.5 mg PO DAILY PRN 06/03/21 07/27/23 loratadine 10 mg tablet (Claritin) 10 mg PO DAILY 06/03/21 07/27/23 cromolyn 100 mg/5 mL oral 200 mg PO QID 07/27/23 07/27/23 concentrate norethindrone (contraceptive) 0.35 0.35 mg PO DAILY 07/27/23 07/27/23 mg tablet sodium chloride 1,000 mg soluble 1 mg PO DAILY 07/27/23 07/27/23 tablet Previous Rx's ?Medication ?Instructions ?Recorded naproxen 500 mg tablet 500 mg PO Q12H PRN for pain #60 04/19/22 tabs rizatriptan 10 mg tablet 5 - 10 mg (0.5 - 1 x 10 mg) PO Q2H 05/25/22 PRN migraine headache 21 days #12 tabs cholecalciferol (vitamin D3) 25 25 mcg PO DAILY 30 days #30 caps 06/22/23 mcg (1,000 unit) capsule ubrogepant 100 mg tablet (Ubrelvy) 50 - 100 mg (0.5 - 1 x 100 mg) PO 07/27/23 ONCE PRN migraine headache 30 days #16 tabs Allergies Allergy/AdvReac Type Severity Reaction Status Date / Time latex [LATEX] Allergy Unknown UNKNOWN Verified 08/08/23 22:44 Penicillins [PENICILLINS] Allergy Unknown UNKNOWN Verified 08/08/23 22:44 Sulfa (Sulfonamide Allergy Unknown UNKNOWN Verified 06/03/24 22:44 Antibiotics) [SULFA (SULFONAMIDE ANTIBIOTICS)] egg Allergy Abdominal Verified 08/08/23 22:44 Pain gluten Allergy Joint Pain Verified 08/08/23 22:44 lactose Allergy Abdominal Verified 08/08/23 22:44 Pain mushroom Allergy Anaphylaxis Verified 08/08/23 22:44 shellfish derived Allergy Diarrhea Verified 08/08/23 22:44 Review of Systems Review of Systems Constitutional : No Weight loss, No Fever, No Chills, No Night Sweats, No Fatigue, No Malaise ENT/Mouth : No Hearing loss, No Ear Pain, No Nasal Congestion, No Sinus Pain, No Hoarseness, No sore throat, No Rhinorrhea, No Swallowing Difficulty Eyes: No Eye Pain, No Swelling, No Redness, No Foreign Body, No Discharge, No Vision Changes Cardiovascular : No Chest Pain, No SOB, No Dyspnea on Exertion, No Orthopnea, No Edema, No Palpitations Respiratory : No Cough, No Sputum, No Wheezing, No Smoke Exposure, No Dyspnea Gastrointestinal : Complaining of nausea vomiting, intermittent diarrhea, complaining of severe right lower quadrant pain, constant, radiating towards the back Genitourinary : no irregular bleeding, No Dysuria, No Urinary Frequency, No Hematuria, No Urinary Incontinence, No Urgency, No Flank Pain, No Urinary Flow Changes, No Hesitancy Musculoskeletal : No joint pain, No Myalgias, No Joint Swelling Skin : No Skin Lesions, No rash Neuro : No Weakness, No Numbness, No Paresthesias, No Loss of Consciousness, No Dizziness, No Headache Psych : No Anxiety/Panic, No Depression, No SI/HI/AH/VH, No Social Issues, Heme/Lymph: No Bruising, No Bleeding,No Lymphadenopathy Endocrine : No Polyuria, No Polydipsia, No Temperature Intolerance [facility] Past Medical History Medical History 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) High cholesterol Anemia Slipped disc in neck Surgical History History of LEEP (loop electrosurgical excision procedure) of cervix complicating History of colonoscopy History of wisdom tooth extraction Family History Family History Mother Migraines Maternal Grandmother Migraines Brother Migraines Family/Other Rheumatoid arthritis Social History Social History Alcohol intake: current Alcohol intake frequency: does not drink Patient Tobacco Use Status: Former Tobacco user Smoked in Last 30 Days: No Use of substances other than those prescribed or required for medical reasons: No Substance Use Type: Marijuana Advance Directives: No Current occupational status: unemployed Physical Exam ED Vital Signs: Vital Signs - 24 hr 08/08/23 22:38 08/09/23 03:46 08/09/23 05:51 Temperature 99.6 F 98.8 F 98.4 F Pulse Rate 73 60 68 Respiratory Rate 20 16 16 Blood Pressure 109/58 L 109/61 86/43 L Pulse Oximetry 99 97 97 Oxygen Delivery Method Room Air Room Air Room Air 08/09/23 06:00 08/09/23 06:45 Temperature Pulse Rate 77 62 Respiratory Rate 16 14 Blood Pressure 92/43 L 96/43 L Pulse Oximetry 99 99 Oxygen Delivery Method Room Air Room Air BMI result Body Mass Index 21.9 Const Other: Appearance: Alert. Oriented X3. Seems uncomfortable Eyes: Pupils equal, round and reactive to light. ENT: Pharynx normal. Neck: Normal inspection. Neck supple. No lymph nodes noted. No crepitus CVS: Normal heart rate and rhythm. Pulses normal. Normal S1 and S2 Respiratory: No respiratory distress. Breath sounds normal. No Wheezing. No rales Abdomen: Soft, negative Bhandari sign, patient does have pain at the McBurney's point, with rebound and guarding Skin: Skin warm and dry. There skin color. Normal skin turgor. Extremities: No lower extremity edema. No Lacerations. No Rash Neuro: Oriented X 3. No motor deficit. No sensory deficit. Moving all extremities. No slurred speech. CN 2 through 12 grossly intact Psych: calm, cooperative, normal affect Course Course Course Narrative: -patient receiving IV fluids, ketorolac, Zofran, -CT scan pending, discussed with the patient that appendicitis is high on the differential Medical Decision Making Medical Decision Making MDM Narrative: -my interpretation of labs, white blood cell count elevated 14.9, chemistry within normal limits, LFTs T bili 1.7, AST and ALT normal, hCG negative -patient's physical exam is suggestive of appendicitis -my interpretation of CT scan, acute appendicitis with fecalith -patient received IV levofloxacin and metronidazole, IV fluids. 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 Leach, pt being admitted, [facility] an acute care hospital this mornign Differential Diagnosis Differential Diagnoses: The differential diagnosis associated with the presentation includes (Appendicitis, ovarian cyst rupture, ureterolithiasis) Admission/Observation Consideration of admission/observation: Escalation of care including admission/observation considered Consult Healthcare Provider Management of the patient was discussed with: Torch Brazer Lab Data [facility] Lab Attestation statement: I reviewed the patient's lab results. 08/08/23 22:58 08/08/23 22:58 Labs: Lab Results 08/08/23 Range/Units 22:58 WBC 14.9 H (4.8-10.8) X10*3/uL RBC 4.76 (4.20-5.50) X10*6/uL Hgb 15.0 (12.0-16.0) g/dl Hct 42.7 (37.0-47.0) % MCV 89.7 (80.0-98.0) fL MCH 31.5 (27.0-33.0) pg MCHC 35.1 H (31.0-35.0) g/dl RDW 12.4 (11.0-16.0) % Plt Count 204 (160-400) X10*3/uL MPV 10.1 (9.4-12.3) fL Immature Gran % (Auto) 0.4 (0.0-0.4) % Neut % (Auto) 80.8 H (45-73) % Lymph % (Auto) 12.6 L (20-40) % [place] % (Auto) 5.5 (2-11) % Eos % (Auto) 0.4 (0-4) % Baso % (Auto) 0.3 (0-2) % Lymph # (Auto) 1.9 (1.2-4.9) X10*3/uL [place] # (Auto) 0.8 (0.1-1.2) X10*3/uL Eos # (Auto) 0.1 (0.0-0.4) X10*3/uL Baso # (Auto) 0.1 (0.0-0.2) X10*3/uL Abs Immat Gran (auto) 0.06 H (0.00-0.03) X10*3/uL Absolute Neuts (auto) 12.0 H (2.0-8.3) x10*3/uL Absolute Nucleated RBC 0.000 (0.0-0.012) X10*3/uL Nucleated RBC % (auto) 0.0 (0.0-0.2) /100WBC Sodium 137 (135-145) mmol/L Potassium 3.9 (3.3-5.1) mmol/L Chloride 103 (96-108) mmol/L Carbon Dioxide 24 (22-29) mmol/L Anion Gap 14 (12-20) BUN 13 (9-16) mg/dL Creatinine 0.96 (0.5-1.4) mg/dL Estim Creat Clear Calc 65.9 Estimated GFR > 60 Random Glucose 107 (60-115) mg/dL Calcium 10.0 D (8.4-10.2) mg/dL Total Bilirubin 1.7 H (0.0-1.0) mg/dL AST 15 (5-31) U/L ALT 12 (0-31) U/L Alkaline Phosphatase 50 (39-117) U/L Total Protein 8.3 H (6.5-8.0) g/dL Albumin 4.7 (3.5-5.0) g/dL Lipase 16 (8-78) U/L Beta HCG, Quant < 2 mIU/mL Urine Color Yellow Urine Appearance Clear Urine pH 7.5 (5.0-9.0) Ur Specific [place] 1.020 (1.005-1.025) Urine Protein Negative (Neg-Trace) mg/dL Urine Glucose (UA) Negative (Negative) mg/dL Urine Ketones 80 (Negative) mg/dL Urine Blood Negative (Negative) Urine Nitrite Negative (Negative) Ur Leukocyte Esterase Negative (Negative) Independent Interpretation I performed an independent interpretation of an: CT Scan Radiology Impression Discussion of test interpretation with radiology: I have reviewed the radiologist's reading. Radiologist Impression: [address] [address] [address] Scan Report Signed Patient: Sophy Ash MR#: [id number] : 1990 Acct:[id number] Age/Sex: 33 / F ADM Date: 08/09/23 Loc: HO.ED Attending Dr: Ordering Physician: Nelly Larkin MD Date of Service: 08/09/23 Procedure(s): CT abdomen pelvis w IV con Accession Number(s): [id number] cc: Taisha Matrin MD; Nelly Larkin MD~ EXAMINATION: CT ABDOMEN AND PELVIS WITH CONTRAST CLINICAL INFORMATION: Right lower quadrant pain. COMPARISON: 11/18/2018 TECHNIQUE: Multidetector volumetric images were obtained from the superior aspect of the liver through the pubic symphysis following administration 85 mL of Omnipaque 350 intravenous contrast. Sagittal and coronal reformatted images were obtained on the technologist's workstation. Oral contrast: No This CT examination was performed using dose optimization techniques as appropriate, variously including the following: *Automated exposure control *Adjustment of mA and/or kV according to patient size (this includes techniques or standardized protocols for targeted exams where dose is matched to indication/reason for exam; i.e. extremities or head) *Use of iterative reconstruction technique DLP: 360 mGy-cm FINDINGS: LUNG BASES: No pulmonary consolidation or pleural effusion. HEPATOBILIARY: Liver has normal size and contour. 0.5 cm hypodense focus at the hepatic dome probably represents a hemangioma; it has a density of approximately 50 Hounsfield units. 1.7 cm hypodense focus in the inferior right hepatic lobe has features of a cavernous hemangioma, as noted on 11/18/2018. It was 1.5 cm on the prior CT exam. Also, a nearby hypodense 1 cm focus in the inferior right lobe of approximately 50 Hounsfield unit attenuation is compatible with a hemangioma. Gallbladder has a normal appearance. No dilated bile ducts. PANCREAS: No edema, pancreatic ductal dilatation or mass. SPLEEN: Normal. ADRENAL GLANDS: Normal. KIDNEYS AND URETERS: Kidneys are normal in size. No nephrolithiasis, hydronephrosis or perinephric edema. 1 cm simple cortical cyst of the posterior upper pole the right kidney. No renal imaging follow-up is recommended for simple cyst. BLADDER: Underdistended, grossly unremarkable. BOWEL AND PERITONEUM: No dilated bowel loops. There are a few appendicoliths, and the appendix is filled with fluid, distended up to 1.4 cm diameter. The appendix has a thickened wall. Trace periappendiceal fluid is present but there is no circumscribed, measurable periappendiceal collection. ABDOMINAL WALL: Unremarkable. VASCULATURE: Abdominal aorta is normal in caliber and its branches widely patent. LYMPH NODES: No pathologic sized lymph nodes in the abdomen or pelvis. No inguinal lymphadenopathy. PELVIC VISCERA: The uterus and adnexa have a normal appearance. The largest follicle within the right ovary is 1.4 cm. MUSCULOSKELETAL: Unremarkable. CT/CT abdomen pelvis w IV con IMPRESSION: * Acute appendicitis with presence of trace periappendiceal fluid. There is no visible disruption of the appendiceal wall. * Hemangiomas of the liver. Medications Administered Generic Name Dose Route Start Last Admin Trade Name Freq PRN Reason Stop Dose Admin Sodium Chloride 1,000 mls @ 999 mls/hr 08/09/23 06:00 08/09/23 06:45 Ns IV 08/09/23 08:00 999 mls/hr .Q1H1M MARTA Administration Discontinued Medications Generic Name Dose Route Start Last Admin Trade Name Freq PRN Reason Stop Dose Admin Sodium Chloride 1,000 mls @ 999 mls/hr 08/09/23 03:57 08/09/23 05:50 Ns IVCONT 08/09/23 04:57 Infused .Q1H1M ONE Infusion Iohexol 85 ml 08/09/23 04:42 08/09/23 04:43 Iohexol 350 Mg/Ml 100 Ml Infus..Btl IV 08/09/23 04:43 85 ml ONCE ONE Administration Ketorolac Tromethamine 30 mg 08/09/23 03:57 08/09/23 04:32 Ketorolac Tromethamine 30 Mg/Ml Vial IVPUSH 08/09/23 03:58 30 mg ONCE ONE Administration Ondansetron HCl 4 mg 08/09/23 03:57 08/09/23 04:32 Ondansetron Hcl 4 Mg/2 Ml Vial IVPUSH 08/09/23 03:58 4 mg ONCE ONE Administration Critical Care Time Critical Care Time Critical Care Time: Yes Total Critical Care Time: 75 Attestation: I have personally provided critical care time. Time includes review of lab data, radiology results, discussion with consultants, and monitoring for potential decompensation. Intervention performed as documented. Discharge Plan Discharge Clinical Impression: Acute appendicitis Patient Disposition: Admitted As Inpatient Prescriptions: No Action naproxen 500 mg tablet 500 mg PO Q12H PRN (Reason: for pain) Qty: 60 2RF cholecalciferol (vitamin D3) 25 mcg (1,000 unit) capsule 25 mcg PO DAILY 30 Days Qty: 30 2RF atorvastatin 20 mg tablet 20 mg PO DAILY clonazepam 0.5 mg tablet 0.5 mg PO DAILY PRN loratadine [Claritin] 10 mg tablet 10 mg PO DAILY aspirin [Adult Aspirin Regimen] 81 mg tablet,delayed release (DR/EC) 81 mg PO DAILY rizatriptan 10 mg tablet 5 - 10 mg PO Q2H PRN (Reason: migraine headache) 21 Days Qty: 12 3RF Rx Instructions: max 2 tabs per day or 4 tabs per week cromolyn 100 mg/5 mL concentrate 200 mg PO QID sodium chloride 1,000 mg tablet,soluble 1 mg PO DAILY norethindrone (contraceptive) 0.35 mg tablet 0.35 mg PO DAILY Ubrelvy 100 mg tablet 50 - 100 mg PO ONCE PRN (Reason: migraine headache) 30 Days Qty: 16 3RF Rx Instructions: take at onset of migraine, may repeat in 2hrs (may take w/ Ibuprofen) Print Language: [place]an
[2023-08-09] MEDS: ondansetron HCL 4 MG/2 ML VIAL IVPUSH ×2 (04:32→13:08)
[2023-08-09] MEDS: 0.9 % Sodium Chloride 1,000 ML 999 ML IVCONT (04:32)
[2023-08-09] MEDS: Ketorolac Tromethamine 30 MG/ML VIAL IVPUSH (04:32)
[2023-08-09] MEDS: iohexoL 350 MG/ML 100 ML INFUS..BTL 85 ML IV (04:43)
[2023-08-09] MEDS: 0.9 % Sodium Chloride 1,000 ML 999 ML IV ×2 (06:03→06:45)
--- NOTE | 2023-08-09 06:19 | PC.NURSE ---
BP FOUND TO BE SYS [address] DOC[address]ED[address] DR. ZARATE MADE AWARE. VERBAL ORDER FOR 2000ML NORMAL SALINE BOLUS AND TRENDELENBERG POSITION. IVF INFUSING. PT IS AXOX4; DENIES CP/SOB/DIZZINESS. PT REPORTS RLQ ABD PAIN IMPROVED WITH TORADOL ADMINISTERED PER MAY. CALL MEIER WITHIN REACH.
[2023-08-09 08:00] LABS: INTERNATIONAL NORM RATIO 1.2 (0.9-1.1)
[2023-08-09 08:02] LABS: Lactic Acid 0.7 mmol/L (0.5-2.0)
[2023-08-09 08:03] LABS: Partial Thromboplastin Time 32.1 SEC (26.0-36.8)
[2023-08-09] MEDS: levoFLOXacin/D5W 500 MG/100 ML PIGGYBACK 100 MG IV (08:54)
[2023-08-09] MEDS: metroNIDAZOLE/NS 500 MG/100 ML PIGGYBACK 100 MG IV ×3 (10:28→22:12)
--- NOTE | 2023-08-09 10:55 | PHA.MEDREC ---
Pharmacy Consult ? Medication Reconciliation Pharmacy has completed the medication reconciliation.spoke with patient she states that she should be on aspirin 81 mg, but she forgets. leaving off med rec because patients, states she hasn't taken in a while. patent states she should be taking cromolyn bid but she only takes it when she knows she will have a reaction to specific foods.
--- NOTE | 2023-08-09 12:05 | PM.HPGS ---
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 It got bad with a low-grade temperature and so she came to the emergency room last night. Here blood work reveals a elevated white count at 14,[address] scan of her abdomen and pelvis was carried out which shows changes consistent with appendicitis with distended appendix with appendicolith. She has tender in the right lower quadrant area. 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) High cholesterol Anemia Slipped disc in neck Family History Family History Mother Migraines Maternal Grandmother Migraines Brother Migraines Family/Other Rheumatoid arthritis Surgical History Surgical History History of LEEP (loop electrosurgical excision procedure) of cervix complicating History of colonoscopy History of wisdom tooth extraction Social History Social History Alcohol intake: current Alcohol intake frequency: does not drink Patient Tobacco Use Status: Former Tobacco user Smoked in Last 30 Days: No Use of substances other than those prescribed or required for medical reasons: No Substance Use Type: Marijuana Advance Directives: No Nutrition Risks: No Nutritional Risk Current occupational status: unemployed Meds Allergies Allergy/AdvReac Type Severity Reaction Status Date / Time latex [LATEX] Allergy Unknown UNKNOWN Verified 08/08/23 22:44 Penicillins [PENICILLINS] Allergy Unknown UNKNOWN Verified 08/08/23 22:44 Sulfa (Sulfonamide Allergy Unknown UNKNOWN Verified 08/08/23 22:44 Antibiotics) [SULFA (SULFONAMIDE ANTIBIOTICS)] egg Allergy Abdominal Verified 08/08/23 22:44 Pain gluten Allergy Joint Pain Verified 08/08/23 22:44 lactose Allergy Abdominal Verified 08/08/23 22:44 Pain mushroom Allergy Anaphylaxis Verified 08/08/23 22:44 shellfish derived Allergy Diarrhea Verified 08/08/23 22:44 Active Medications: Current Medications Sodium Chloride (Ns) 1,000 mls @ 100 mls/hr IVCONT .Q10H MARTA Ketorolac Tromethamine (Ketorolac Tromethamine 15 Mg/Ml Vial) 15 mg IVPUSH Q6H MARTA Metoclopramide HCl (Metoclopramide Hcl 10 Mg/2 Ml Vial) 10 mg IVPUSH Q6H PRN PRN Reason: Nausea Ondansetron HCl (Ondansetron Hcl 4 Mg/2 Ml Vial) 4 mg IVPUSH Q8H PRN PRN Reason: Nausea and Vomiting Sodium Chloride (0.9 % Sodium Chloride Flush 3 Ml Syringe) 3 ml IVFLUSH QSHIFT [facility] Home Medications ?Medication ?Instructions ?Recorded ?Confirmed ?Last Taken ?Type atorvastatin 20 mg tablet 20 mg PO DAILY 06/03/21 08/09/23 08/07/23 History clonazepam 0.5 mg tablet 0.5 mg PO DAILY PRN Anxiety 06/03/21 08/09/23 Unknown History loratadine 10 mg tablet (Claritin) 10 mg PO DAILY 06/03/21 08/09/23 08/08/23 History cromolyn 100 mg/5 mL oral 200 mg PO BID PRN food allergy 07/27/23 08/09/23 Unknown History concentrate norethindrone (contraceptive) 0.35 0.35 mg PO DAILY 07/27/23 08/09/23 08/07/23 History mg tablet sodium chloride 1,000 mg soluble 1,000 mg PO DAILY 07/27/23 08/09/23 08/07/23 History tablet epinephrine 0.3 mg/0.3 mL 0.3 mg IM DAILY PRN anaphylaxis 08/09/23 08/09/23 Unknown History injection, auto-injector rizatriptan 10 mg tablet 5 mg PO Q2H PRN migraine headache 08/09/23 08/09/23 Unknown History Physical Exam Vital Signs: Vital Signs: Last Vital Signs Temp 98.3 F 08/09/23 07:50 Pulse 64 08/09/23 10:16 Resp 18 08/09/23 10:16 BP 88/48 L 08/09/23 10:16 Pulse Ox 97 08/09/23 10:16 O2 Del Method Room Air 08/09/23 10:16 BMI result Body Mass Index 21.9 Const: General: cooperative, healthy appearing and acute distress mild Orientation/consciousness: oriented to person, oriented to place, oriented to time and patient oriented x3 Resp: Effort & Inspection: normal respiratory effort and able to speak in complete sentences Auscultation: clear to auscultation bilaterally Cardio: Rate: regular rate Rhythm: regular rhythm GI: Other: Abdomen is soft nondistended she has tender in the right lower quadrant with guarding some mild rebound no peritoneal signs. Active bowel sounds no masses Skin: Other: Normal Neuro: General: oriented to person, oriented to place, oriented to time and patient oriented x3 Extrem: General: Yes normal to inspection Psych: Appearance: grossly normal Mental Status: mental status grossly normal Speech and movement: Normal speech and movement present Affect: normal affect Attitude: cooperative Thought process: Normal thought process present Thought content: Normal thought content present Insight: Good insight present (Psych) Judgement: Good judgement present (Psych) Results Results Labs: Short CBC 08/08/23 Range/Units 22:58 WBC 14.9 H (4.8-10.8) X10*3/uL Hgb 15.0 (12.0-16.0) g/dl Hct 42.7 (37.0-47.0) % Plt Count 204 (160-400) X10*3/uL BMP 08/08/23 22:58 Sodium 137 Potassium 3.9 Chloride 103 Carbon Dioxide 24 BUN 13 Creatinine 0.96 Calcium 10.0 D Liver Function 08/08/23 Range/Units 22:58 Total Bilirubin 1.7 H (0.0-1.0) mg/dL AST 15 (5-31) U/L ALT 12 (0-31) U/L Alkaline Phosphatase 50 (39-117) U/L Albumin 4.7 (3.5-5.0) g/dL Urine 08/08/23 Range/Units 22:58 Urine Color Yellow Urine Appearance Clear Urine pH 7.5 (5.0-9.0) Ur Specific [place] 1.020 (1.005-1.025) Urine Protein Negative (Neg-Trace) mg/dL Urine Glucose (UA) Negative (Negative) mg/dL Abdomen CT scan report/results: report reviewed and image reviewed CT scan - pelvis: report reviewed and image reviewed Additional studies: Chart - [facility] ? Diagnostics Subcategory All Activity ??:?? All Time ??:?? All Subcategories Filter Laboratory Imaging Microbiology Pathology Blood Bank Tests Cardiovascular Other Specialty DATE TYPE STATUS REF RANGE/AUTHOR Hx Today 05:12 Abdomen/Pelvis CT Signed Hugo Escobar 01/18/22 12:57 Knee X-Ray Signed Jonel Marley 12/23/21 00:10 Knee X-Ray Signed Jonel Marley 11/13/20 17:29 Brain MRI Signed John Blancas 04/10/20 00:00 Diagnostic Report, External Brain MRI Report 04/01/20 18:02 Chest CTA Signed Carlos Pike Alyssa Acute 33, F?1990 MRN#? [id number] ADM IN,?Emergency Department??ED Bed 03?-ED3? 5ft 2in 120lb BSA: 1.54m? BMI: 21.9kg/m? Acc#? [id number] Full Code Historical Visits Allergies latex (LATEX) UNKNOWN Penicillins (PENICILLINS) UNKNOWN Sulfa (Sulfonamide Antibiotics) (SULFA (SULFONAMIDE ANTIBIOTICS)) UNKNOWN egg Abdominal Pain gluten Joint Pain lactose Abdominal Pain mushroom Anaphylaxis shellfish derived Diarrhea Problems ? ONSET Acute appendicitis EDS (Yevgeniy-Danlos syndrome) ADD (attention deficit disorder) Generalized hypermobility of joints Lateral subluxation of right patella Patellar subluxation Sleep disorder Depression Migraine with aura COVID-19 Vital Signs Today 10:16 BP 88/48?L Pulse 64? Resp 18? O2 Sat 97? Delivery Room Air? Home Meds Confirmed Prescription Monitoring Program MEDICATIONS (INSTRUCTIONS) LAST TAKEN Active atorvastatin 20 mg tablet 20 mgPODAILY 08/07/23 cholecalciferol (vitamin D3) 25 mcg (1,000 unit) capsule 25 [id number] days#30 caps 08/07/23 clonazepam 0.5 mg tablet 0.5 mgPODAILYPRNAnxiety Unknown cromolyn 100 mg/5 mL oral concentrate 200 mgPOBIDPRNfood allergy Unknown epinephrine 0.3 mgIMDAILYPRNanaphylaxis Unknown loratadine 10 mg tablet 10 mgPODAILY 08/08/23 norethindrone (contraceptive) 0.35 mg tablet 0.35 mgPODAILY 08/07/23 rizatriptan 5 [id number] headache Unknown sodium chloride 1,000 mg soluble tablet 1,000 mgPODAILY 08/07/23 My Widget No Data to Display Diagnostics Reports Sophy Ash??33??F??1990 ? Allergy/Adv: latex, Penicillins, Sulfa (Sulfonamide Antibiotics), egg, gluten, lactose, mushroom, shellfish derived (More??) Close Abdomen/Pelvis CT (Signed) LuzMichaelHugo - 08/09/23 Knee X-Ray (Signed) Jonel Marley - 01/18/22 Knee X-Ray (Signed) Jonel Marley - 12/23/21 Brain MRI (Signed) MagalisJohn - 11/13/20 Diagnostic Report, External 04/10/20 Chest CTA (Signed) Carlos Pike - 04/01/20 Launch?Image [place] [id number] CT Scan Report Signed Patient: Sophy Ash MR#: [id number] : 1990 Acct:[id number] Age/Sex: 33 / F ADM Date: 08/09/23 Loc: HO.ED Attending Dr: Ordering Physician: Nelly Larkin MD Date of Service: 08/09/23 Procedure(s): CT abdomen pelvis w IV con Accession Number(s): [id number] cc: Taisha Martin MD; Nelly Larkin MD~ EXAMINATION: CT ABDOMEN AND PELVIS WITH CONTRAST CLINICAL INFORMATION: Right lower quadrant pain. COMPARISON: 11/18/2018 TECHNIQUE: Multidetector volumetric images were obtained from the superior aspect of the liver through the pubic symphysis following administration 85 mL of Omnipaque 350 intravenous contrast. Sagittal and coronal reformatted images were obtained on the technologist's workstation. Oral contrast: No This CT examination was performed using dose optimization techniques as appropriate, variously including the following: *Automated exposure control *Adjustment of mA and/or kV according to patient size (this includes techniques or standardized protocols for targeted exams where dose is matched to indication/reason for exam; i.e. extremities or head) *Use of iterative reconstruction technique DLP: 360 mGy-cm FINDINGS: LUNG BASES: No pulmonary consolidation or pleural effusion. HEPATOBILIARY: Liver has normal size and contour. 0.5 cm hypodense focus at the hepatic dome probably represents a hemangioma; it has a density of approximately 50 Hounsfield units. 1.7 cm hypodense focus in the inferior right hepatic lobe has features of a cavernous hemangioma, as noted on 11/18/2018. It was 1.5 cm on the prior CT exam. Also, a nearby hypodense 1 cm focus in the inferior right lobe of approximately 50 Hounsfield unit attenuation is compatible with a hemangioma. Gallbladder has a normal appearance. No dilated bile ducts. PANCREAS: No edema, pancreatic ductal dilatation or mass. SPLEEN: Normal. ADRENAL GLANDS: Normal. KIDNEYS AND URETERS: Kidneys are normal in size. No nephrolithiasis, hydronephrosis or perinephric edema. 1 cm simple cortical cyst of the posterior upper pole the right kidney. No renal imaging follow-up is recommended for simple cyst. BLADDER: Underdistended, grossly unremarkable. BOWEL AND PERITONEUM: No dilated bowel loops. There are a few appendicoliths, and the appendix is filled with fluid, distended up to 1.4 cm diameter. The appendix has a thickened wall. Trace periappendiceal fluid is present but there is no circumscribed, measurable periappendiceal collection. ABDOMINAL WALL: Unremarkable. VASCULATURE: Abdominal aorta is normal in caliber and its branches widely patent. LYMPH NODES: No pathologic sized lymph nodes in the abdomen or pelvis. No inguinal lymphadenopathy. PELVIC VISCERA: The uterus and adnexa have a normal appearance. The largest follicle within the right ovary is 1.4 cm. MUSCULOSKELETAL: Unremarkable. CT/CT abdomen pelvis w IV con IMPRESSION: * Acute appendicitis with presence of trace periappendiceal fluid. There is no visible disruption of the appendiceal wall. * Hemangiomas of the liver. The critical test result was discussed with Dr. Larkin at 7:26 AM on 08/09/2023 and it was ascertained that the content and the importance of the findings was understood at the time of the direct communication. Dictated By: Huog Escobar MD Signed By: <Electronically signed by Hugo Escobar MD in OV> 08/09/23 0730 DD/ 0512 TD/TT: Laundry Tech: PD Assessment and Plan (1) Acute appendicitis: Status: Acute Plan 33-year-old female with acute appendicitis with background medical issues of EDS. Tender in right lower quadrant area elevated white count and CT scan showing distended dilated appendix. Plan is to carry out laparoscopic appendectomy possible open procedure. Risks and benefits discussed with the patient including but not limited to bleeding infection as poor healing of the staple line bowel injury an open procedure and she understands and agrees to proceed. Quality Stroke Does the patient have a stroke diagnosis?: No VTE Prior VTE?: No VTE Risk Level:: Surgical - low VTE Device Contraindication: Treatment Not Indicated VTE Drug Contraindication: Treatment Not Indicated Procedures Date of Service Date of Service: 08/09/23
[2023-08-09] MEDS: Ketorolac Tromethamine 15 MG/ML VIAL IVPUSH (13:08)
[2023-08-09] MEDS: 0.9 % Sodium Chloride 1,000 ML 100 ML IVCONT ×2 (13:09→21:09)
--- NOTE | 2023-08-09 14:57 | MHC.EDTECH ---
patient safely walked self to and from bathroom utilizing cane with steady, even gait
--- NOTE | 2023-08-09 17:11 | PC.NURSE ---
Mother Alesha with patient in preop. Per patient request, mother took all patients belongings from preop.
--- NOTE | 2023-08-09 17:17 | HO.ANESPROP2 ---
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) High cholesterol Anemia Slipped disc in neck Family History Family History Mother Migraines Maternal Grandmother Migraines Brother Migraines Family/Other Rheumatoid arthritis Family history of problems with anesthesia: No Surgical History Surgical History (Updated 08/09/23 @ 17:03 by Chel Davis) H/O cervical spine surgery History of LEEP (loop electrosurgical excision procedure) of cervix complicating History of colonoscopy History of wisdom tooth extraction History of Problems with Anesthesia: No Social History Social History Alcohol intake: current Alcohol intake frequency: holidays/special occasions only Patient Tobacco Use Status: Former Tobacco user Tobacco use type: Cigarette Substance Use Type: Marijuana Current occupational status: unemployed Meds Allergies Allergy/AdvReac Type Severity Reaction Status Date / Time latex [LATEX] Allergy Severe Anaphylaxis Verified 08/09/23 17:05 Penicillins [PENICILLINS] Allergy Severe Anaphylaxis Verified 08/09/23 17:05 Sulfa (Sulfonamide Allergy Intermediate Hives Verified 08/09/23 17:05 Antibiotics) [SULFA (SULFONAMIDE ANTIBIOTICS)] egg Allergy Abdominal Verified 08/09/23 17:05 Pain gluten Allergy Joint Pain Verified 08/09/23 17:05 lactose Allergy Abdominal Verified 08/09/23 17:05 Pain mushroom Allergy Anaphylaxis Verified 08/09/23 17:05 shellfish derived Allergy Diarrhea Verified 08/09/23 17:05 Active Medications: Current Medications Sodium Chloride (Ns) 1,000 mls @ 100 mls/hr IVCONT .Q10H [facility] Last Admin: 08/09/23 13:09 Dose: 100 mls/hr Metronidazole (Flagyl) 500 mg in 100 mls @ 100 mls/hr IV Q6H [facility] Last Admin: 08/09/23 16:24 Dose: 100 mls/hr Ketorolac Tromethamine (Ketorolac Tromethamine 15 Mg/Ml Vial) 15 mg IVPUSH Q6H [facility] Last Admin: 08/09/23 13:08 Dose: 15 mg Metoclopramide HCl (Metoclopramide Hcl 10 Mg/2 Ml Vial) 10 mg IVPUSH Q6H PRN PRN Reason: Nausea Ondansetron HCl (Ondansetron Hcl 4 Mg/2 Ml Vial) 4 mg IVPUSH Q8H PRN PRN Reason: Nausea and Vomiting Last Admin: 08/09/23 13:08 Dose: 4 mg Sodium Chloride (0.9 % Sodium Chloride Flush 3 Ml Syringe) 3 ml IVFLUSH QSHIFT [facility] Last Admin: 08/09/23 16:19 Dose: Not Given Home Medications ?Medication ?Instructions ?Recorded ?Confirmed ?Last Taken ?Type atorvastatin 20 mg tablet 20 mg PO DAILY 06/03/21 08/09/23 08/07/23 History clonazepam 0.5 mg tablet 0.5 mg PO DAILY PRN Anxiety 06/03/21 08/09/23 Unknown History loratadine 10 mg tablet (Claritin) 10 mg PO DAILY 06/03/21 08/09/23 08/08/23 History cromolyn 100 mg/5 mL oral 200 mg PO BID PRN food allergy 07/27/23 08/09/23 Unknown History concentrate norethindrone (contraceptive) 0.35 0.35 mg PO DAILY 07/27/23 08/09/23 08/07/23 History mg tablet sodium chloride 1,000 mg soluble 1,000 mg PO DAILY 07/27/23 08/09/23 08/07/23 History tablet epinephrine 0.3 mg/0.3 mL 0.3 mg IM DAILY PRN anaphylaxis 08/09/23 08/09/23 Unknown History injection, auto-injector rizatriptan 10 mg tablet 5 mg PO Q2H PRN migraine headache 08/09/23 08/09/23 Unknown History Exam Height,Weight and Vital Signs: Height 5 ft 2 in Weight 54.431 kg Last Vital Signs Temp 98.4 F 08/09/23 17:05 Pulse 72 08/09/23 17:05 Resp 16 08/09/23 17:05 BP 99/54 L 08/09/23 17:05 Pulse Ox 98 08/09/23 17:05 O2 Del Method Room Air 08/09/23 17:05 Pertinent Lab Results Pertinent Lab Results: Laboratory Tests 08/08/23 08/09/23 22:58 07:43 WBC 14.9 H RBC 4.76 Hgb 15.0 Hct 42.7 MCV 89.7 MCH 31.5 MCHC 35.1 H RDW 12.4 Plt Count 204 MPV 10.1 Immature Gran % (Auto) 0.4 Neut % (Auto) 80.8 H Lymph % (Auto) 12.6 L [place] % (Auto) 5.5 Eos % (Auto) 0.4 Baso % (Auto) 0.3 Lymph # (Auto) 1.9 [place] # (Auto) 0.8 Eos # (Auto) 0.1 Baso # (Auto) 0.1 Abs Immat Gran (auto) 0.06 H Absolute Neuts (auto) 12.0 H Absolute Nucleated RBC 0.000 Nucleated RBC % (auto) 0.0 PT 15.0 H INR 1.2 H APTT 32.1 Sodium 137 Potassium 3.9 Chloride 103 Carbon Dioxide 24 Anion Gap 14 BUN 13 Creatinine 0.96 Estim Creat Clear Calc 65.9 Estimated GFR > 60 Random Glucose 107 Lactic Acid 0.7 Calcium 10.0 D Total Bilirubin 1.7 H AST 15 ALT 12 Alkaline Phosphatase 50 Total Protein 8.3 H Albumin 4.7 Lipase 16 Beta HCG, Quant < 2 Urine Color Yellow Urine Appearance Clear Urine pH 7.5 Ur Specific [place] 1.020 Urine Protein Negative Urine Glucose (UA) Negative Urine Ketones 80 Urine Blood Negative Urine Nitrite Negative Ur Leukocyte Esterase Negative Airway Mallampati Class: I TM Dist: >3cm Neck ROM: Full Loose/Missing/Broken Teeth: No Heart: rrr Lungs: cta Assessment and Plan Assessment Anesthesia Assessment: Anesthesia Plan Discussed, Smoking Cess. Discussed and Chart Reviewed Final Anesthetic Review Family History of Problems with Anesthesia: No History of Problems with Anesthesia: No NPO: Yes ASA Class: II and Emergency Final Preanesthetic Review: No Changes in Pt Med Stat, Meds/Allgs Chart Reviewed, Consent Obtained/Reviewed and Anes Risks/Benef Reviewed Patient Risk: Intermediate Procedure Risk: Intermediate Anesthetic Plan Anesthetic Plan: GA Disposition: Standard PACU
--- NOTE | 2023-08-09 17:32 | PC.NURSE ---
Patient arrived to [facility] with #20 left AC. Site redressed, flushed well.
--- NOTE | 2023-08-09 17:43 | PC.NURSE ---
Report given to Kasia ALVAREZU RN.
--- NOTE | 2023-08-09 20:24 | P.OP_ITS ---
Operative Note Operative Note Date of Service: 08/09/23 Narrative: Preop diagnosis -- acute appendicitis Postop diagnosis-- acute appendicitis Procedure-- laparoscopic appendectomy Surgeon-- [facility] Anesthesia-- general Patient is a 33-year-old female comes in with several day history of abdominal pain settling into the right lower quadrant nausea vomiting and some diarrhea. Elevated white count and CT scan showing thickened appendix with appendicolith present throughout the length of the appendix. As a result she comes in now for laparoscopic appendectomy Findings-- acutely inflamed appendix with multiple appendicoliths present and the appendix going down into the pelvis towards the rectal area. It was inflamed and stuck and in the process of removing the appendix came out in 2 pieces Procedure-- Patient was brought to the operative room under Anesthesia guidance was intubated. She had compression stockings placed before induction received preoperative antibiotics as she was being treated for acute appendicitis. Her abdomen was prepped and draped in standard surgical fashion. An infraumbilical incision was created after numbing up the area with a 0.25% Marcaine with epinephrine. Dissection was carried down to the anterior abdominal wall fascia which was transected after being grasped with Jonathan's. A 5 mm port was placed and pneumoperitoneum was established and then once confirmed that we were in the Hahn trocar introduced. Two 5 mm ports were then placed under direct visualization using local 1 in the suprapubic area and 1 in the left lower quadrant. Patient was positioned left side down and the appendix was identified in the right lower quadrant and the cecum appeared to be normal. There was a large appendicolith close to the base of the appendix which made grasping and elevating the appendix a little difficult. It seemed very stuck into the pelvis. Attention was focused at the appendiceal cecal junction and using the [place] dissector the base of the appendix was dissected out and then a Endo- ROSCOE stapler fired across the base of the appendix cecum area. This did well then the LigaSure was used to come across the mesentery trying to pull and elevate the appendix out of the pelvis. This was difficult as it was really garry ck down. We followed the mesentery down hugging the appendix taking it off with the LigaSure. In pulling at along an area where they appendicolith was present the appendix tore and came across in the setting but piece. Eventually we were able to pull up the distal aspect of the appendix and its mesentery and take it off the mesentery with the LigaSure. The 2 pieces of the appendix were now mercy ihsan in Endo-Catch bag and removed from the infraumbilical port site. We will required opening of the fascia to get this out. Pneumoperitoneum was then re- established and the right lower quadrant area was irrigated. The appendiceal stump site looks fine in the mesentery looked fine and the small bowel looked fine. Quick look at the intra-abdominal contents not reveal any significant or concerning issues. Ports were then removed under direct visualization and 2 [id number] sutures were used with 0 Vicryl to approximate the umbilical fascia. 4-0 Monocryl was then used in the interrupted subcuticular fashion to approximate the skin edges and Steri-Strips placed. Tegaderm was then used over gauze. At the end of the case all sponge instrument needle counts were correct estimated blood loss was about 10 cc specimens sent was the appendix . The patient was extubated returned stable to recovery room
[2023-08-09] MEDS: Clindamycin Phosphate/D5W 300 MG/50 ML PIGGYBACK 100 MG IV (21:12)
--- NOTE | 2023-08-09 23:00 | PC.NURSE ---
Assumed care of patient at this time.
[2023-08-10] MEDS: 0.9 % Sodium Chloride Flush 3 ML SYRINGE IVFLUSH (01:28)
[2023-08-10] MEDS: Ketorolac Tromethamine 15 MG/ML VIAL IVPUSH ×4 (01:28→17:26)
[2023-08-10] MEDS: oxyCODONE HCl Immed Release 5 MG TABLET 10 MG PO ×2 (02:03→06:54)
[2023-08-10] MEDS: Metoclopramide HCl 10 MG/2 ML VIAL IVPUSH (02:03)
[2023-08-10 02:17] VITALS: BP 102/57; PULSE 63; RESP 16; TEMP 36.3; O2SAT 96
[2023-08-10] MEDS: Clindamycin Phosphate/D5W 300 MG/50 ML PIGGYBACK 100 MG IV ×3 (05:03→19:57)
[2023-08-10] MEDS: metroNIDAZOLE/NS 500 MG/100 ML PIGGYBACK 100 MG IV ×4 (05:08→21:29)
[2023-08-10] MEDS: 0.9 % Sodium Chloride 1,000 ML 100 ML IVCONT ×3 (06:55→19:50)
[2023-08-10 07:08] VITALS: BP 100/60; PULSE 52; RESP 16; TEMP 36.3; O2SAT 96
--- NOTE | 2023-08-10 09:23 | MHC.CM.PN ---
PATIENT LIVES IN A HOME W/ HER MOTHER. AMBULATES W/ A CANE, USES A KNEE BRACE. OTHERWISE INDEPENDENT. PCP DR VOGEL NO HCP. CM PROVIDED EDUCATION AND OFFERED ASSISTANCE. PATIENT DECLINED. DP: GOAL IS HOME SELF CARE, POTENTIALLY LATER TODAY IF PAIN IS BETTER CONTROLLED. FAMILY WILL PROVIDE TRANSPORT. CM WILL CONTINUE TO FOLLOW.
[2023-08-10] MEDS: oxyCODONE HCl Immed Release 5 MG TABLET PO ×2 (09:26→21:30)
[2023-08-10] MEDS: ondansetron HCL 4 MG/2 ML VIAL IVPUSH ×2 (09:30→17:32)
--- NOTE | 2023-08-10 09:30 | P.PNGS_ITS ---
Subjective Subjective Date of Service: 08/10/23 Interval history: Says she is sore on her incisions Tolerating diet Ambulating slowly Physical Exam 2 Vital Signs: Vital Signs: Last Vital Signs Temp 97.3 F 08/10/23 07:08 Pulse 52 08/10/23 07:08 Resp 16 08/10/23 07:08 BP 100/60 08/10/23 07:08 Pulse Ox 96 08/10/23 07:08 O2 Del Method Room Air 08/10/23 07:08 O2 Flow Rate 4 08/09/23 20:18 BMI result Body Mass Index 21.9 Const: General: comfortable and no acute distress Resp: Effort & Inspection: normal respiratory effort Cardio: Rate: regular rate GI: Other: Dressings dry Palpation (GI): Soft to palpation Objective Data Active Medications Sodium Chloride (Ns) 1,000 mls @ 100 mls/hr IVCONT .Q10H [facility] Last Admin: 08/10/23 06:55 Dose: 100 mls/hr Documented By: SILVER Metronidazole (Flagyl) 500 mg in 100 mls @ 100 mls/hr IV Q6H [facility] Last Infusion: 08/10/23 06:17 Dose: Infused Documented By: MISBAH Clindamycin Phosphate (Cleocin) 300 mg in 50 mls @ 100 mls/hr IV Q8H [facility] Last Infusion: 08/10/23 05:54 Dose: Infused Documented By: MISBAH Ketorolac Tromethamine (Ketorolac Tromethamine 15 Mg/Ml Vial) 15 mg IVPUSH Q6H [facility] Last Admin: 08/10/23 05:09 Dose: 15 mg Documented By: MISBAH Metoclopramide HCl (Metoclopramide Hcl 10 Mg/2 Ml Vial) 10 mg IVPUSH Q6H PRN PRN Reason: Nausea Last Admin: 08/10/23 02:03 Dose: 10 mg Documented By: MISBAH Ondansetron HCl (Ondansetron Hcl 4 Mg/2 Ml Vial) 4 mg IVPUSH Q8H PRN PRN Reason: Nausea and Vomiting Last Admin: 08/09/23 13:08 Dose: 4 mg Documented By: JESÚS Oxycodone HCl (Oxycodone Hcl Immed Release 5 Mg Tablet) 5 mg PO Q4H PRN PRN Reason: Pain, Moderate(Pain Scale 4-6) Oxycodone HCl (Oxycodone Hcl Immed Release 5 Mg Tablet) 10 mg PO Q4H PRN PRN Reason: Pain, Severe (Pain Scale 7-10) Last Admin: 08/10/23 06:54 Dose: 10 mg Documented By: SILVER Sodium Chloride (0.9 % Sodium Chloride Flush 3 Ml Syringe) 3 [facility] Last Admin: 08/10/23 06:56 Dose: Not Given Documented By: SILVER Non-Admin Reason: IV Running Labs 08/08/23 22:58 08/08/23 22:58 Procedures Date of Service Date of Service: 08/10/23 Progress Note: A&P Assessment and plan (1) Acute appendicitis: Status: Acute Assessment and Plan: Status post laparoscopic appendectomy last night with Dr. Vaughan Says she still has issues with pain control Tolerating diet with good GI functions Looks well clinically She says she may not be ready to be discharged today We will re-evaluate later on Doing well overall Time Spent With Patient Time: Total time managing care of this patient today ____ minutes. Quality Stroke Does the patient have a stroke diagnosis?: No VTE Prior VTE?: No VTE Risk Level:: Surgical - low VTE Device Contraindication: Treatment Not Indicated VTE Drug Contraindication: Treatment Not Indicated
--- NOTE | 2023-08-10 15:24 | HO.POSTANES ---
Post Anesthesia Evaluation Post Anesthesia Evaluation Date of Service: 08/10/23 Vital Signs: Vital Signs Temp Pulse Resp BP Pulse Ox O2 Del Method 08/10/23 07:08 97.3 F 52 16 100/60 96 Room Air Anesthesia: General Endotracheal-GETA Mental Status: Awake Pain Control: Satisfactory Nausea/Vomiting: None Hydration: Adequate Anesthesia-Related Issues: No Anes. Related Issues
[2023-08-10 15:25] VITALS: BP 95/54; PULSE 56; RESP 13; TEMP 36; O2SAT 99
--- NOTE | 2023-08-10 15:27 | PM.EVENT ---
Event Note Date of Service: 08/11/23 Event Note: Patient says she has not ready to be discharged because of pain issues She says she still has pain on incisions on ambulating Tolerating oral intake well Looks well otherwise Abdomen soft and remains benign Continue pain management Likely DC home tomorrow once with better pain control Time Spent With Patient Time: Total time managing care of this patient today ____ minutes.
[2023-08-10 19:48] VITALS: BP 110/59; PULSE 66; RESP 13; TEMP 36.1; O2SAT 98
[2023-08-11 03:32] VITALS: BP 103/57; PULSE 51; RESP 14; TEMP 36.3; O2SAT 96
[2023-08-11] MEDS: 0.9 % Sodium Chloride 1,000 ML 100 ML IVCONT ×2 (05:26→19:16)
[2023-08-11] MEDS: Clindamycin Phosphate/D5W 300 MG/50 ML PIGGYBACK 100 MG IV (05:26)
[2023-08-11] MEDS: metroNIDAZOLE/NS 500 MG/100 ML PIGGYBACK 100 MG IV (05:27)
[2023-08-11] MEDS: Ketorolac Tromethamine 15 MG/ML VIAL IVPUSH ×3 (05:27→17:46)
[2023-08-11 07:38] VITALS: BP 106/51; PULSE 52; RESP 14; TEMP 36; O2SAT 98
[2023-08-11] MEDS: ondansetron HCL 4 MG/2 ML VIAL IVPUSH ×2 (07:48→17:46)
[2023-08-11] MEDS: oxyCODONE HCl Immed Release 5 MG TABLET PO ×2 (07:48→19:16)
[2023-08-11 09:15] LABS: Hematocrit 32.1 % (37.0-47.0); Hemoglobin 11.3 g/dl (12.0-16.0); Mean Corpuscular HGB Conc 35.2 g/dl (31.0-35.0); Mean Corpuscular Volume 90.9 fL (80.0-98.0); Red Blood Count 3.53 X10*6/uL (4.20-5.50); White Blood Count 7.7 X10*3/uL (4.8-10.8)
--- NOTE | 2023-08-11 09:48 | PM.PNGS ---
Subjective Subjective Date of Service: 08/11/23 Interval history: She states that she feels ready to be discharged Does mentioned she has had some nausea Ambulating but admits to pain on incisions has migraine headaches Physical Exam Vital Signs: Vital Signs: Last Vital Signs Temp 96.8 F 08/11/23 07:38 Pulse 52 08/11/23 07:38 Resp 14 08/11/23 07:38 BP 106/51 L 08/11/23 07:38 Pulse Ox 98 08/11/23 07:38 O2 Del Method Room Air 08/11/23 07:38 O2 Flow Rate 4 08/09/23 20:18 BMI result Body Mass Index 21.9 Const: Other: Appears anxious General: comfortable and no acute distress Resp: Effort & Inspection: normal respiratory effort Cardio: Rate: regular rate GI: Other: Dressings dry Palpation (GI): Soft to palpation Objective Data Active Medications Sodium Chloride (Ns) 1,000 mls @ 100 mls/hr IVCONT .Q10H [facility] Last Admin: 08/11/23 05:26 Dose: 100 mls/hr Documented By: JAN Metronidazole (Flagyl) 500 mg in 100 mls @ 100 mls/hr IV Q6H [facility] Last Infusion: 08/11/23 07:44 Dose: Infused Documented By: GURDEEP Clindamycin Phosphate (Cleocin) 300 mg in 50 mls @ 100 mls/hr IV Q8H [facility] Last Infusion: 08/11/23 06:00 Dose: Infused Documented By: JAN Ketorolac Tromethamine (Ketorolac Tromethamine 15 Mg/Ml Vial) 15 mg IVPUSH Q6H [facility] Last Admin: 08/11/23 05:27 Dose: 15 mg Documented By: JAN Metoclopramide HCl (Metoclopramide Hcl 10 Mg/2 Ml Vial) 10 mg IVPUSH Q6H PRN PRN Reason: Nausea Last Admin: 08/10/23 02:03 Dose: 10 mg Documented By: MISBAH Ondansetron HCl (Ondansetron Hcl 4 Mg/2 Ml Vial) 4 mg IVPUSH Q8H PRN PRN Reason: Nausea and Vomiting Last Admin: 08/11/23 07:48 Dose: 4 mg Documented By: GURDEEP Oxycodone HCl (Oxycodone Hcl Immed Release 5 Mg Tablet) 5 mg PO Q4H PRN PRN Reason: Pain, Moderate(Pain Scale 4-6) Last Admin: 08/11/23 07:48 Dose: 5 mg Documented By: GURDEEP Oxycodone HCl (Oxycodone Hcl Immed Release 5 Mg Tablet) 10 mg PO Q4H PRN PRN Reason: Pain, Severe (Pain Scale 7-10) Last Admin: 08/10/23 06:54 Dose: 10 mg Documented By: SILVER Sodium Chloride (0.9 % Sodium Chloride Flush 3 Ml Syringe) 3 ml IVFLUSH QSHIFT [facility] Last Admin: 08/11/23 07:10 Dose: Not Given Documented By: GURDEEP Non-Admin Reason: IV Running Labs 08/11/23 08:45 08/08/23 22:58 Labs: Laboratory Results - last 24 hr 08/11/23 08:45 MCV 90.9 MCH 32.0 MCHC 35.2 H RDW 13.0 Absolute Nucleated RBC 0.000 Nucleated RBC % (auto) 0.0 Microbiology Microbiology Results: Microbiology 08/09/23 07:43 Blood Culture - Preliminary Blood - Venous No growth after 48 hours. 08/09/23 07:56 Blood Culture - Preliminary Blood - Venous No growth after 24 hours. Procedures Date of Service Date of Service: 08/11/23 Progress Note: A&P Assessment and plan (1) Acute appendicitis: Status: Acute Assessment and Plan: Status post appendectomy Looks well She feels she is ready to discharged Does have pain issues Likely to DC home today once she is more comfortable We will see in the office for follow-up Discharge instructions reinforced with patient Time Spent With Patient Time: Total time managing care of this patient today ____ minutes. Quality Stroke Does the patient have a stroke diagnosis?: No VTE Prior VTE?: No VTE Risk Level:: Surgical - low VTE Device Contraindication: Treatment Not Indicated VTE Drug Contraindication: Treatment Not Indicated
[2023-08-11 10:19] LABS: Mean Platelet Volume 11.3 fL (9.4-12.3); Platelet Count 131 X10*3/uL (160-400)
--- NOTE | 2023-08-11 10:24 | MHC.CM.PN ---
PT WILL DC HOME TODAY WITH NO SERVICES VIA PRIVATE TRANSPORT
--- NOTE | 2023-08-11 11:43 | PM.EVENT ---
Event Note Date of Service: 08/11/23 Event Note: Seen on follow-up rounds She is depressed She says she was supposed to see her psychiatrist yesterday but this had to be canceled She is extremely anxious about ongoing issues She also describes dark urine from last night Denies any complaints Abdomen remained soft and benign No leukocytosis We will check UA She says she will stay in the hospital for now because of extreme anxiety We will cancel discharge for today Time Spent With Patient Time: Total time managing care of this patient today ____ minutes.
[2023-08-11 13:46] LABS: Appearance Urine Clear; Color Urine Yellow; Glucose Urine UA Negative (Negative); Leukocyte Esterase Urine Trace (Negative); Nitrite Urine Negative (Negative); PH 6.5 (5.0-9.0); UMIC TRIGGER UA YES; Urine Blood Negative (Negative); Urine Ketones 80 mg/dL (Negative); Urine Protein Negative (Neg-Trace)
[2023-08-11 13:53] LABS: Bacteria Urine None Seen (None Seen); Hyaline Casts Urine 0-2 /LPF (0-2); RBC Urine 0-2 /HPF (0-2); Squamous Epithelial Cell Urine 0-2 /HPF (0-2); WBC Urine 0-5 /HPF (0-5)
[2023-08-11 15:28] VITALS: BP 100/57; PULSE 70; RESP 18; TEMP 36.4; O2SAT 98
--- NOTE | 2023-08-11 15:38 | PM.EVENT ---
Event Note Date of Service: 08/12/23 Event Note: Seen on late afternoon rounds She feels better Much less anxious and now smiling Abdomen remained soft and benign Family was in the room I explained to her that her urinalysis was unremarkable and she was concerned about her ?brown urine? She says she might be ready to go home tomorrow Clinically looks well She admits to a long history of anxiety and depression and says that is frustrated that she was unable to see her psychiatrist yesterday Time Spent With Patient Time: Total time managing care of this patient today ____ minutes.
[2023-08-11 19:44] VITALS: BP 114/58; PULSE 56; RESP 16; TEMP 36.3; O2SAT 98
[2023-08-12 04:00] VITALS: BP 105/56; PULSE 63; RESP 16; TEMP 36.6; O2SAT 97
[2023-08-12] MEDS: 0.9 % Sodium Chloride 1,000 ML 100 ML IVCONT ×2 (04:39→14:14)
[2023-08-12] MEDS: Ketorolac Tromethamine 15 MG/ML VIAL IVPUSH ×3 (04:39→17:31)
[2023-08-12] MEDS: oxyCODONE HCl Immed Release 5 MG TABLET PO (07:15)
[2023-08-12 07:49] VITALS: BP 109/59; PULSE 54; RESP 16; TEMP 36; O2SAT 97
--- NOTE | 2023-08-12 08:10 | P.PNGS_ITS ---
Subjective Subjective Date of Service: 08/12/23 Interval history: She says she feels well this morning Denies abdominal pain Passing flatus and has good BMs however, she says she has not really eaten much she gets nauseous easily Physical Exam 2 Vital Signs: Vital Signs: Last Vital Signs Temp 96.8 F 08/12/23 07:49 Pulse 54 08/12/23 07:49 Resp 16 08/12/23 07:49 BP 109/59 L 08/12/23 07:49 Pulse Ox 97 08/12/23 07:49 O2 Del Method Room Air 08/12/23 07:49 O2 Flow Rate 4 08/09/23 20:18 BMI result Body Mass Index 21.9 Const: Other: Anxious looking General: comfortable and no acute distress Resp: Effort & Inspection: normal respiratory effort Cardio: Rate: regular rate GI: Other: Incisions clean and dry Inspection: No distended Palpation (GI): Soft to palpation, not firm and no guarding Objective Data Active Medications Sodium Chloride (Ns) 1,000 mls @ 100 mls/hr IVCONT .Q10H [facility] Last Admin: 08/12/23 04:39 Dose: 100 mls/hr Documented By: JAN Ketorolac Tromethamine (Ketorolac Tromethamine 15 Mg/Ml Vial) 15 mg IVPUSH Q6H [facility] Last Admin: 08/12/23 04:39 Dose: 15 mg Documented By: JAN Lorazepam (Lorazepam 1 Mg Tablet) 1 mg PO TID PRN PRN Reason: Anxiety Metoclopramide HCl (Metoclopramide Hcl 10 Mg/2 Ml Vial) 10 mg IVPUSH Q6H PRN PRN Reason: Nausea Last Admin: 08/10/23 02:03 Dose: 10 mg Documented By: MISBAH Ondansetron HCl (Ondansetron Hcl 4 Mg/2 Ml Vial) 4 mg IVPUSH Q8H PRN PRN Reason: Nausea and Vomiting Last Admin: 08/11/23 17:46 Dose: 4 mg Documented By: GURDEEP Oxycodone HCl (Oxycodone Hcl Immed Release 5 Mg Tablet) 5 mg PO Q4H PRN PRN Reason: Pain, Moderate(Pain Scale 4-6) Last Admin: 08/12/23 07:15 Dose: 5 mg Documented By: GURDEEP Oxycodone HCl (Oxycodone Hcl Immed Release 5 Mg Tablet) 10 mg PO Q4H PRN PRN Reason: Pain, Severe (Pain Scale 7-10) Last Admin: 08/10/23 06:54 Dose: 10 mg Documented By: SILVER Sodium Chloride (0.9 % Sodium Chloride Flush 3 Ml Syringe) 3 ml IVFLUSH QSHIFT [facility] Last Admin: 08/12/23 06:54 Dose: Not Given Documented By: GURDEEP Non-Admin Reason: IV Running Labs 08/11/23 08:45 08/08/23 22:58 Labs: Laboratory Results - last 24 hr 08/11/23 08/11/23 08:45 Unknown MCV 90.9 MCH 32.0 MCHC 35.2 H RDW 13.0 Plt Count 131 L D MPV 11.3 Absolute Nucleated RBC 0.000 Nucleated RBC % (auto) 0.0 Urine Color Yellow Urine Appearance Clear Urine pH 6.5 Ur Specific [place] 1.010 Urine Protein Negative Urine Glucose (UA) Negative Urine Ketones 80 Urine Blood Negative Urine Nitrite Negative Ur Leukocyte Esterase Trace H Urine RBC 0-2 Urine WBC 0-5 Ur Squamous Epith Cells 0-2 Urine Bacteria None Seen Hyaline Casts 0-2 Microbiology Microbiology Results: Microbiology 08/09/23 07:56 Blood Culture - Preliminary Blood - Venous No growth after 48 hours. 08/09/23 07:43 Blood Culture - Preliminary Blood - Venous No growth after 48 hours. Procedures Date of Service Date of Service: 08/12/23 Progress Note: A&P Assessment and plan (1) Acute appendicitis: Status: Acute Assessment and Plan: Clinically looks well after appendectomy However, she states that she has had oral intake because of nausea with food Abdomen otherwise soft and very benign She says she will try to eat today and considering discharge later on once she has better oral intake I did tell her that she should have adequate oral intake especially with fluid before she can be discharged She does have significant anxiety and depression and says she is supposed to see her psychiatrist week Doing well overall Time Spent With Patient Time: Total time managing care of this patient today ____ minutes. Quality Stroke Does the patient have a stroke diagnosis?: No VTE Prior VTE?: No VTE Risk Level:: Surgical - low VTE Device Contraindication: Treatment Not Indicated VTE Drug Contraindication: Treatment Not Indicated
[2023-08-12] MEDS: ondansetron HCL 4 MG/2 ML VIAL IVPUSH ×2 (11:29→20:04)
--- NOTE | 2023-08-12 14:06 | PM.EVENT ---
Event Note Date of Service: 08/12/23 Event Note: Seen on afternoon rounds She feels well but still gets nauseous with food She does not feel that she gets adequate oral intake for now Plan on holding discharge for now until oral intake better Abdomen soft and benign Stable vital signs and no fever Doing well overall Time Spent With Patient Time: Total time managing care of this patient today ____ minutes.
--- NOTE | 2023-08-12 14:59 | MHC.CM.PN ---
EMR reviewed, pt is not medically cleared for discharge due to management of post op care.
[2023-08-12 15:41] VITALS: BP 122/65; PULSE 60; RESP 16; TEMP 36.4; O2SAT 99
[2023-08-12 19:41] VITALS: BP 110/52; PULSE 60; RESP 20; TEMP 36.5; O2SAT 99
[2023-08-12] MEDS: oxyCODONE HCl Immed Release 5 MG TABLET 10 MG PO (20:18)
[2023-08-13] MEDS: Ketorolac Tromethamine 15 MG/ML VIAL IVPUSH ×3 (00:27→11:42)
[2023-08-13] MEDS: 0.9 % Sodium Chloride 1,000 ML 100 ML IVCONT ×2 (00:28→11:42)
[2023-08-13 03:19] VITALS: BP 119/59; PULSE 70; RESP 20; TEMP 36.2; O2SAT 97
[2023-08-13 07:44] VITALS: BP 117/59; PULSE 54; RESP 18; TEMP 36; O2SAT 99
[2023-08-13] MEDS: oxyCODONE HCl Immed Release 5 MG TABLET 10 MG PO (08:11)
[2023-08-13] MEDS: ondansetron HCL 4 MG/2 ML VIAL IVPUSH (08:11)
[2023-08-13] MEDS: Metoclopramide HCl 10 MG/2 ML VIAL IVPUSH (11:44)
--- NOTE | 2023-08-13 12:56 | MHC.CM.PN ---
Patient medically cleared for dc home self care. Private transport within 1 hr. RN aware.
--- NOTE | 2023-08-24 09:25 | P.DS_ITS ---
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 It got bad with a low- grade temperature and so she came to the emergency room last night. Here blood work reveals a elevated white count at 14,[address] scan of her abdomen and pelvis was carried out which shows changes consistent with appendicitis with distended appendix with appendicolith. She is tender in the right lower quadrant area. HOSPITAL COURSE: The patient was admitted to the surgical service for further treatment of the acute appendicitis. She elected to proceed with laparoscopic appendectomy and was added onto the OR schedule for that day. On 08/09/23, a laparoscopic appendectomy was performed by Dr. Vaughan without complication. The patient tolerated the procedure well. She had an uncomplicated but slow recovery course. She remained inpatient for 3 post op days for pain control and nausea. On the day of discharge, POD #4, she felt well and was tolerating a solid diet with good oral intake without nausea or vomiting, had good pain control and was ambulating without difficulty. She was hemodynamically stable. Her abdomen was benign with appropriate post op tenderness and clean incisions. She felt ready for discharge. She was discharged to home on 08/13/23 in stable condition. She is to follow up in the office in 1 week. Time Attestation Discharge Coordination Time (in mins): 30 Quality: Safe Use of Opioids Does Pt have an Active Cancer Diagnosis on the Problem List?: No Quality: Stroke Does the patient have a stroke diagnosis?: No Physical Exam Vital Signs: Vital Signs: Last Vital Signs Temp 96.8 F 08/13/23 07:44 Pulse 54 08/13/23 07:44 Resp 18 08/13/23 07:44 BP 117/59 L 08/13/23 07:44 Pulse Ox 99 08/13/23 07:44 O2 Del Method Room Air 08/13/23 07:44 O2 Flow Rate 4 08/09/23 20:18 BMI result Body Mass Index 21.9 Const: General: comfortable and no acute distress GI: Inspection: Yes incision (clean) Palpation (GI): Soft to palpation and no guarding DS: Data Data Completed and Pending Completed studies during hospitalization [Text1]: 08/09/23 19:51 Surgical [PTH] Routine Vermiform appendix, appendectomy: Suppurative appendicitis and periappendicitis Procedures Resection of Appendix, Percutaneous Endoscopic Approach (08/09/23) Discharge Plan Discharge Anticipated Discharge Date/Time: 08/11/23 10:31 Patient Disposition: Home, Self-Care Discharge Diagnosis: acute appendicitis Referrals: Andrea Erwin MD [Physician] - 1 Week Taisha Martin MD [Primary Care Provider] - 1 Week Discharge Medications: New ibuprofen 600 mg tablet 600 mg PO Q6H PRN (Reason: pain) Qty: 25 0RF oxycodone-acetaminophen [Percocet] 5-325 mg tablet 1 tab PO Q4-6H PRN (Reason: pain) Qty: 25 0RF Rx Instructions: Partial Fill upon patient request. Continued cholecalciferol (vitamin D3) 25 mcg (1,000 unit) capsule 25 mcg PO DAILY 30 Days Qty: 30 2RF epinephrine 0.3 mg/0.3 mL auto-injector 0.3 mg IM DAILY PRN (Reason: anaphylaxis) rizatriptan 10 mg tablet 5 mg PO Q2H PRN (Reason: migraine headache) Rx Instructions: max 2 tabs per day or 4 tabs per week atorvastatin 20 mg tablet 20 mg PO DAILY clonazepam 0.5 mg tablet 0.5 mg PO DAILY PRN (Reason: Anxiety) loratadine [Claritin] 10 mg tablet 10 mg PO DAILY cromolyn 100 mg/5 mL concentrate 200 mg PO BID PRN (Reason: food allergy) sodium chloride 1,000 mg tablet,soluble 1,000 mg PO DAILY norethindrone (contraceptive) 0.35 mg tablet 0.35 mg PO DAILY Discharge Orders: Discharge Order (Routine); Ordered 08/13/23 Ordered By: Jory Vaughan Diet: Advance to usual diet Activity on Discharge: No heavy lifting Stand Alone Forms: Patient Portal Discharge page, Work/School Release Print Language: Icelandic Activity Restrictions/Additional Instructions: If the incision area is tender, you may apply an ice pack for short intervals (No more than 20 minutes on, followed by at least 20 minutes off). Do not apply heat. Do not use creams, lotions, or topical antibiotics unless instructed to do so by your surgeon. These can cause infection or allergic reaction. No lifting more than 20 lbs Okay to shower Okay to change dressings with gauze or Band-Aid No strenuous activities Call the office for follow-up in 2 weeks - with Dr. Erwin Call Your Doctor If: -Your temperature exceeds 101.5? F -You experience excessive pain or swelling -You have an unexpected reaction to medication -You have excessive bleeding -You experience continued vomiting/nausea -Your incision begins to separate -Your incision shows signs of infection such as increased redness, swelling, excessive pain, drainage (light blood or clear fluid is normal) or heat Care Plan Goals: return to baseline health Health Concerns: depression, sleep d/o Plan of Treatment: oral pain meds Assessment: doing well Discharge Date/Time: 08/13/23 13:42
== END 2023-08-13 13:42 | disposition home or self-care (01) | DRG 234 ==
LOC: HO.ED 08-09 07:37 → HO.EDOVER 08-09 09:09 → HO.S3 08-09 14:26
PROVIDERS: Surgery; Admitting Provider Surgery; Emergency Provider Emergency Medicine; PCP Family Medicine; Visit Provider Surgery
PROC: 0DTJ4ZZ Resection of Appendix, Percutaneous Endoscopic Approach (ICD-10-PCS; CPT 44970; principal; 2023-08-09 17:00)
DX: K35.80 Unspecified acute appendicitis (principal); K38.1 Appendicular concretions; Z87.891 Personal history of nicotine dependence; Q79.60 Ehlers-Danlos syndrome, unspecified; Z91.040 Latex allergy status; Z79.899 Other long term (current) drug therapy
CPT/HCPCS: 36415; 74177; 80053; 81001; 81003; 83605; 83690; 84702; 85025; 85027; 85610; 85730; 87040; 88304; 99285; J0736; J1100; J1836; J1885; J1956; J2250; J2405; J2704; J2765; J3010; Q9967

== ENCOUNTER → 2023-08-09 09:05 | Outpatient (BNV) | payer BC, SELFPAY | PROVIDERS: Admitting Provider Surgery; Emergency Provider Emergency Medicine; PCP Family Medicine; Visit Provider Surgery | DX: K35.80 Unspecified acute appendicitis (principal) | CPT/HCPCS: 44970; 99024; 99222; 99499 ==

== ENCOUNTER 2023-08-24 13:12 | Outpatient (AMB) | payer BC, SELFPAY ==
[2023-08-24 13:24] VITALS: BMI 20.8
--- NOTE | 2023-08-24 13:24 | A.OFFVIS_ITS ---
Vital Signs 08/24/23 13:24 Height 5 ft 2 in Weight 114 lb BMI 20.8 Intake Visit Reasons: S/P appendectomy Intake Note: This patient presents for a post-op assessment status post laparoscopic appendectomy. Patient c/o; reports pain, reports has not been able to return to work due to pain. 08/09/2023: laparoscopic appendectomy Surgeon-- Clement [employer] Specialist Required: No Accompanied by: Self / Same As Patient Allergies latex [LATEX] Allergy (Severe, Verified 08/24/23 13:27) Anaphylaxis Penicillins [PENICILLINS] Allergy (Severe, Verified 08/24/23 13:27) Anaphylaxis Sulfa (Sulfonamide Antibiotics) [SULFA (SULFONAMIDE ANTIBIOTICS)] Allergy (Intermediate, Verified 08/24/23 13:27) Hives egg Allergy (Verified 08/24/23 13:27) Abdominal Pain gluten Allergy (Verified 08/24/23 13:27) Joint Pain lactose Allergy (Verified 08/24/23 13:27) Abdominal Pain mushroom Allergy (Verified 08/24/23 13:27) Anaphylaxis shellfish derived Allergy (Verified 08/24/23 13:27) Diarrhea HPI HPI S/P appendectomy: Details: 33-year-old female here for postop visit. She underwent laparoscopic appendectomy for acute appendicitis, with Dr. Vaughan last 08/09/2023. She was discharged on postop day number 4 because of pain issues She has good oral intake at home. She says she still has some pain although this is slowly getting better. She also complains of right knee pain because of a subluxation of the joint and says that she has to use a cane when she ambulates. She denies any fever at home. 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) High cholesterol Anemia Slipped disc in neck Surgical History History of laparoscopic appendectomy (~08/09/23) H/O cervical spine surgery History of LEEP (loop electrosurgical excision procedure) of cervix complicating History of colonoscopy History of wisdom tooth extraction Family History Mother Migraines Maternal Grandmother Migraines Brother Migraines Family/Other Rheumatoid arthritis Social History Household Members: Family Housing: House Alcohol intake: current Alcohol intake frequency: holidays/special occasions only Patient Tobacco Use Status: Former Tobacco user Tobacco use type: Cigarette Substance Use Type: Marijuana service: No Current occupational status: unemployed Review of Systems Const Denies chills and Denies fever(s) Card Denies chest pain Resp Denies cough Physical Exam Vital Signs: BMI result Body Mass Index 20.8 Const Other: Ambulating with a cane General: no acute distress Resp Effort & Inspection: normal respiratory effort Cardio Rate: regular rate GI Other: Nondistended, all incisions well healed Palpation (GI): Soft to palpation, not firm and no guarding Assessment & Plan Assessment & Plan (1) Acute appendicitis: Code(s): K35.80 - Unspecified acute appendicitis Category: Medical Plan: Status post laparoscopic appendectomy. She doing well postoperatively. Her incisions are all well healed. She is good GI functions I advised her to avoid lifting anything more than 20 lb s for at least 2 more weeks. He is otherwise well up on a p.r.n. basis. Coding Level of Care Code Global (88833) Diagnoses Acute appendicitis K35.80
== END 2023-08-24 13:37 | disposition home or self-care (01) ==
PROVIDERS: PCP Family Medicine; Visit Provider Surgery
DX: K35.80 Unspecified acute appendicitis (principal)
CPT/HCPCS: 99024

== ENCOUNTER → 2023-08-24 13:12 | Outpatient (BNVA) | payer BC, SELFPAY | PROVIDERS: PCP Family Medicine; Visit Provider Surgery ==

== ENCOUNTER 2023-09-05 10:51 | Outpatient (AMB) | payer BC, SELFPAY ==
--- NOTE | 2023-09-05 11:00 | MHC.OFFVIS ---
Vital Signs 09/05/23 11:01 Height 5 ft 2 in Weight 116 lb BMI 21.2 Intake Visit Reasons: infected appendectomy wound Intake Note: This patient presents for a wound check status post lap appy. Patient c/o; reports pus discharge from on of her incisions, reports LLQ incision has discomfort but no discharge. Cost Accounting Manager Required: No Accompanied by: Self / Same As Patient Allergies latex [LATEX] Allergy (Severe, Verified 09/05/23 11:11) Anaphylaxis Penicillins [PENICILLINS] Allergy (Severe, Verified 09/05/23 11:11) Anaphylaxis Sulfa (Sulfonamide Antibiotics) [SULFA (SULFONAMIDE ANTIBIOTICS)] Allergy (Intermediate, Verified 09/05/23 11:11) Hives egg Allergy (Verified 09/05/23 11:11) Abdominal Pain gluten Allergy (Verified 09/05/23 11:11) Joint Pain lactose Allergy (Verified 09/05/23 11:11) Abdominal Pain mushroom Allergy (Verified 09/05/23 11:11) Anaphylaxis shellfish derived Allergy (Verified 09/05/23 11:11) Diarrhea HPI HPI infected appendectomy wound: Details: She had undergone laparoscopic appendectomy with Dr. Vaughan last 08/09/2023. She had been doing well. She called this morning because she was concerned about an ?infection? of her incision on the umbilicus. She says she noticed a little bit of discharge from the area. She denies any fever. She has good oral intake and good bowel movements. 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) High cholesterol Anemia Slipped disc in neck Surgical History History of laparoscopic appendectomy (~08/09/23) H/O cervical spine surgery History of LEEP (loop electrosurgical excision procedure) of cervix complicating History of colonoscopy History of wisdom tooth extraction Family History Mother Migraines Maternal Grandmother Migraines Brother Migraines Family/Other Rheumatoid arthritis Social History Household Members: Family Housing: House Alcohol intake: current Alcohol intake frequency: holidays/special occasions only Patient Tobacco Use Status: Former Tobacco user Tobacco use type: Cigarette Substance Use Type: Marijuana service: No Current occupational status: unemployed Review of Systems Const Denies chills and Denies fever(s) Card Denies chest pain Resp Denies cough GI Denies abdominal pain Physical Exam Vital Signs: BMI result Body Mass Index 21.2 Const Other: Walks with a cane in view of her joint pains General: comfortable Resp Effort & Inspection: normal respiratory effort Cardio Rate: regular rate GI Other: All incisions are healing well, stitch seen on the left lower quadrant incision, no signs of infection Palpation (GI): Soft to palpation, not firm, nontender and no guarding Assessment & Plan Assessment & Plan (1) Acute appendicitis: Code(s): K35.80 - Unspecified acute appendicitis Category: Medical Plan: Status post laparoscopic appendectomy. She is doing very well. I assured her that there is no wound infection currently. I cut the protruding stitch with a pair of scissors . I told her that she will not need antibiotics. She can follow up on a p.r.n. basis. Coding Level of Care Code Global (28315) Diagnoses Acute appendicitis K35.80
[2023-09-05 11:01] VITALS: BMI 21.2
== END 2023-09-05 11:51 | disposition home or self-care (01) ==
PROVIDERS: PCP Family Medicine; Visit Provider Surgery
DX: K35.80 Unspecified acute appendicitis (principal)
CPT/HCPCS: 99024

== ENCOUNTER → 2023-09-05 10:51 | Outpatient (BNVA) | payer BC, SELFPAY | PROVIDERS: PCP Family Medicine; Visit Provider Surgery ==